=== PATIENT | female | born 1970 | race Hispanic/Latino ===

== ENCOUNTER 2017-02-28 15:31 | Emergency (ER) | payer SELFPAY ==
--- NOTE | 2017-02-28 17:19 | RAD ---
LEFT ANKLE THREE VIEWS: 02/28/17 HISTORY: Left ankle pain. FINDINGS/IMPRESSION: The ankle mortise is maintained. No fracture or dislocation or bony destruction is seen. Plantar calc aneal spur is present. POS: [facility]
[2017-02-28] MEDS ORDERED: Ketorolac Tromethamine 30 MG/ML VIAL ONE (17:40)
== END 2017-02-28 17:46 | disposition home or self-care (01) ==
LOC: ERS 15:31
DX: S93.402A Sprain of unspecified ligament of left ankle, initial encounter (principal); E11.9 Type 2 diabetes mellitus without complications; F32.9 Major depressive disorder, single episode, unspecified; J44.9 Chronic obstructive pulmonary disease, unspecified; I11.0 Hypertensive heart disease with heart failure; I50.9 Heart failure, unspecified; G40.909 Epilepsy, unspecified, not intractable, without status epilepticus; N19 Unspecified kidney failure; X50.0XXA Overexertion from strenuous movement or load, initial encounter
CPT/HCPCS: 96372; J1885

== ENCOUNTER 2017-09-29 13:31 | Inpatient (IN) | payer SELFPAY ==
--- NOTE | 2017-09-29 14:09 | RAD ---
CHEST 1 VIEW: Date: 09/29/17 HISTORY: Chest pain. COMPARISON: 04/23/15. FINDINGS: Cardiac silhouette is magnified and upper limits of normal in size. Pulmonary vasculature is slightly engorged with mild bilateral perihilar infiltrates and widespread reticulonodular interstitial promi nence. No lobar consolidation or evidence of pneumothorax. quality assurance monitor body leads overlie the chest. IMPRESSION: Borderline cardiomegaly. Borderline pulmonary vascular congestion. POS: H
[2017-09-29 14:17] LABS: #Basophils 0.1 thou/uL (0.0-0.2); #Eosinphils 0.2 thou/uL (0.0-0.7); #Lymphocytes 5.2 thou/uL (1.20-3.40); #Monocytes 1.2 thou/uL (0.11-0.59); #Neutrophils 10.6 thou/uL (1.40-6.50); %Basophils 0.7 % (0.0-1.0); %Lymphocytes 29.9 % (21.0-51.0); %Neutrophils 61.3 % (42.0-75.0); Hemoglobin 14.2 g/dL (12.0-16.0); Mean Corpuscular HGB CONC 33.8 g/dL (32.0-36.0); Mean Corpuscular Hemoglobin 31.6 pg (27.0-31.0); Mean Corpuscular Volume 93.6 fL (78.0-98.0); Mean Platelet Volume 7.2 fL (7.4-10.4); Platelet Count 213 thou/uL (130-400); RBC Distribution Width 12.6 % (11.5-14.5); White Blood Cell (WBC) Count 17.3 thou/uL (4.8-10.8)
[2017-09-29 14:40] LABS: ALT (SGPT) 14 U/L (8-55); AST (SGOT) 24 U/L (5-34); Albumin 3.6 g/dL (3.5-5.0); Alkaline Phosphatase 81 U/L (40-150); Anion Gap 13 mmol/L (10-20); BUN (Urea Nitrogen) 8 mg/dL (7.0-18.7); Bilirubin, Total 1.3 mg/dL (0.2-1.2); Calc. Creatinine Clearance 0 mL/min (70-130); Calcium 8.5 mg/dL (7.8-10.44); Carbon Dioxide 28 mmol/L (22-29); Chloride 99 mmol/L (98-107); Estimated GFR-MDRD 75; Globulin 4.3 g/dL (2.4-3.5); Glucose 136 mg/dL (70-105); Potassium 3.5 mmol/L (3.5-5.1); Protein, Total 7.9 g/dL (6.0-8.3); Sodium 136 mmol/L (136-145)
[2017-09-29] MEDS ORDERED: Carvedilol 6.25 MG TAB PO SCH (15:30)
[2017-09-29] MEDS ORDERED: Vancomycin HCl 1.5 GM in Sodium Chloride 0.9% 250 ML 300 ML IVPB SCH (15:30)
[2017-09-29] MEDS ORDERED: Lisinopril 10 MG TAB PO SCH (15:30)
[2017-09-29] MEDS ORDERED: Isosorbide Mononitrate 20 MG TAB PO SCH (15:45)
[2017-09-29] MEDS ORDERED: Lisinopril 10 MG TAB ONE (16:29)
--- NOTE | 2017-09-29 17:31 | ULT ---
LEFT LOWER EXTREMITY VENOUS DOPPLER ULTRASOUND: 09/29/17 COMPARISON: None. HISTORY: Left lower extremity edema and pain, swelling, assess for DVT. TECHNIQUE: Multiplanar lantigua scale sonographic imaging of the venous structures of the left lower extremity obtai destin with color flow and spectral analysis. FINDINGS: The left common femoral vein, greater saphenous vein, profunda femoral vein, femoral vein, popliteal vein and posterior tibial vein appear patent. Normal blood flow, augmentation, and compression noted within the deep venous system of the left lower extremity with no evidence for DVT. IMPRESSION: No evidence for deep venous thrombosis of the left lower extremity. POS: FERNANDA
[2017-09-29] MEDS ORDERED: Acetaminophen 500 MG TAB ONE ×2 (17:47→17:50)
[2017-09-29 18:36] LABS: Lactic Acid 1.5 mmol/L (0.5-2.2)
[2017-09-29] MEDS ORDERED: hydrALAZINE 20 MG/ML VIAL SLOW IVP PRN (18:57)
[2017-09-29] MEDS ORDERED: Dextrose 5% in Water 1,000 ML IV PRN (18:57)
[2017-09-29] MEDS ORDERED: Ondansetron ODT 4 MG TAB PO PRN (18:57)
[2017-09-29] MEDS ORDERED: cloNIDine 0.1 MG TAB PO PRN (18:57)
[2017-09-29] MEDS ORDERED: Milk Of Magnesia 30 ML UDCUP PO PRN (18:57)
[2017-09-29] MEDS ORDERED: HumaLOG 300 UNITS/3 ML VIAL SC PRN (18:57)
[2017-09-29] MEDS ORDERED: Dextrose 50% Abboject 50 ML SYRINGE SLOW IVP PRN (18:57)
[2017-09-29] MEDS ORDERED: Temazepam 15 MG CAP PO PRN (18:57)
[2017-09-29] MEDS ORDERED: Acetaminophen 325 MG TAB PO PRN (18:57)
--- NOTE | 2017-09-29 20:45 | HP ---
PRIMARY CARE PHYSICIAN: Through the [facility]. CHIEF COMPLAINT: Pain and swelling in the left leg. HISTORY OF PRESENT ILLNESS: Ms. Buckley is a pleasant 47-year-old female that has a history of hypert ension, diabetes mellitus, and morbid obesity. She was in her usual state of health until the end of July. She says that she was working in her home and she stepped on some plastic bottles and fell. She says it immediately turned green and purple. She says that it was burning off and on, and the br uising went away, but then she started to become very itchy. She says that she started scratching it off and on. Then, by Monday, she started noticing some pain in the area, it was turning red and sw ollen. She developed some fevers and chills and as a result, she came to the ER for evaluation. In the ER, she was found to have an area consistent with cellulitis. Her white cell count was elevated at 17.3 and she is being admitted for further evaluation. The patient denies any other complaints at this time. REVIEW OF SYSTEMS: All systems were reviewed and are negative except for that mentioned in history o f present illness. PAST MEDICAL HISTORY: Significant for obstructive sleep apnea; COPD, on home oxygen; asthma; obesity ; diabetes mellitus type 2; hypertension; hyperlipidemia; and hypercholesterolemia. PAST SURGICAL HISTORY: She has had a cholecystectomy and bilateral tubal ligation. ALLERGIES: CODEINE. SOCIAL HISTORY: She is , has 2 children. She is a nonsmoker, nondrinker. FAMILY HISTORY: Significant for heart disease and cancer. Her brother and sister have diabetes ronnie itus. MEDICATIONS: Include simvastatin 20 mg daily, isosorbide mononitrate 30 mg a day, carvedilol 6.25 mg twice daily, aspirin 81 mg a day, amitriptyline 25 mg 2 tablets a day, Zantac 150 mg twice daily, li sinopril 10 mg daily, metformin 1000 mg twice a day and Lasix 40 mg twice daily. PHYSICAL EXAMINATION: GENERAL: She is alert and oriented. She appears to be in no acute distress. VITAL SIGNS: Blood pressure was 187/108, ranging to 150/80; heart rate 105; respiratory rate of 28; temperature is 100.5. HEENT: Pupils are equal, round, and reactive. Extraocular muscles are intact. Her sclerae are anic teric. Throat: No erythema, no exudates. NECK: No adenopathy, no bruits. LUNGS: Clear to auscultation. There is no wheezing, no rales. CARDIOVASCULAR: She has a normal S1 and S2, no S3 or S4. No murmurs or clicks, no rubs. ABDOMEN: Obese, it is soft, nontender, nondistended. Positive for bowel sounds. No rebound or guar ding. EXTREMITIES: She has got lower extremity edema on the left lower extremity. There is an area encomp assing most of the medial aspect of the left lower extremity with redness and erythema. It is warm t o the touch. She has palpable dorsalis pedis pulses bilaterally. No other significant lesions aroun d the feet. NEUROLOGIC: The exam is grossly nonfocal. She has intact muscle strength in both her upper and lowe r extremities. LABORATORY DATA: White blood cell count 17.3, hemoglobin 14.2, hematocrit is 42.1, platelet count is 213. Sodium 136, potassium 3.5, chloride is 99, CO2 is 28, BUN of 8, creatinine 0.81, glucose is 13 2. Lactic acid was 2.4. ASSESSMENT AND PLAN: 1. This is a pleasant 47-year-old female who presents to the emergency room with what appears to be a cellulitis of the left lower extremity. She has leukocytosis and low-grade temperature. Due to he r diabetes and her morbid obesity, I agree with admission to the hospital for the initial treatment u ntil the area was stabilized. She will be therefore admitted to medicine, started on broad-spectrum IV antibiotics. We will begin with Levaquin and vancomycin. The area has been marked and we will fo llow this clinically. Hopefully, she can be transitioned to an oral antibiotic after approximately 2 -3 days in the hospital. 2. Diabetes mellitus. Continue metformin as well as sliding scale insulin. 3. Morbid obesity. Consult nutrition as she has life threatening obesity. When she lies down, she desaturates. Therefore, we will put her on supplemental oxygen. 4. Obesity hypoventilation syndrome. The patient realizes this condition, but says she was unable t o afford the BiPAP machine. It sounds like she has not ever had a sleep study, but she definitely lazo s this clinically. 5. She will be placed on DVT prophylaxis and lower extremity venous Doppler has been ordered and per formed and is pending.
[2017-09-29] MEDS: Carvedilol 6.25 MG TAB PO SCH (21:09)
[2017-09-29] MEDS: Amitriptyline HCl 25 MG TAB PO SCH (21:09)
[2017-09-29] MEDS: Simvastatin 20 MG TAB PO SCH (21:09)
[2017-09-29] MEDS: Famotidine 20 MG TAB PO SCH (21:09)
[2017-09-29] MEDS: Docusate 100 MG CAP PO SCH (21:10)
[2017-09-30] MEDS: Vancomycin HCl 1.25 GM in Sodium Chloride 0.9% 250 ML 250 ML IVPB SCH ×2 (01:10→08:51)
[2017-09-30] MEDS: traMADol HCl 50 MG TAB PO PRN ×2 (05:46→10:17)
[2017-09-30 06:00] LABS: Anion Gap 11 mmol/L (10-20); BUN (Urea Nitrogen) 15 mg/dL (7.0-18.7); Calc. Creatinine Clearance 116 mL/min (70-130); Calcium 7.7 mg/dL (7.8-10.44); Carbon Dioxide 25 mmol/L (22-29); Chloride 102 mmol/L (98-107); Estimated GFR-MDRD 29; Glucose 130 mg/dL (70-105); Potassium 3.7 mmol/L (3.5-5.1); Sodium 134 mmol/L (136-145)
[2017-09-30 06:10] LABS: Band 16 % (5-11); Eosinophils 3 % (0-10); Hemoglobin 11.7 g/dL (12.0-16.0); Lymphocytes 15 % (21-51); MDiff Complete? YES; Mean Corpuscular HGB CONC 33.3 g/dL (32.0-36.0); Mean Corpuscular Hemoglobin 31.1 pg (27.0-31.0); Mean Corpuscular Volume 93.6 fL (78.0-98.0); Mean Platelet Volume 7.3 fL (7.4-10.4); Monocytes 10 % (0-10); Neutrophil 55 % (42-75); PLT Morphology Comment Appears Adequate; Platelet Count 202 thou/uL (130-400); RBC Distribution Width 12.6 % (11.5-14.5); RBC Morphology Normal; Reactive Lymphocytes 1 % (0-10); Red Blood Cell (RBC) Count 3.74 mill/uL (4.20-5.40); White Blood Cell (WBC) Count 15.6 thou/uL (4.8-10.8)
[2017-09-30] MEDS ORDERED: metFORMIN 500 MG TAB PO SCH (08:00)
[2017-09-30] MEDS: Carvedilol 6.25 MG TAB PO SCH ×2 (08:43→21:24)
[2017-09-30] MEDS: Docusate 100 MG CAP PO SCH ×2 (08:43→21:24)
[2017-09-30] MEDS: Aspirin 81 mg Enteric Coated Tablet PO SCH (08:43)
[2017-09-30] MEDS: Amitriptyline HCl 25 MG TAB PO SCH ×2 (08:43→21:24)
[2017-09-30] MEDS: Enoxaparin Sodium 40 MG/0.4 ML SYRINGE SC SCH (08:45)
[2017-09-30] MEDS: Famotidine 20 MG TAB PO SCH ×2 (08:45→21:23)
[2017-09-30] MEDS ORDERED: Lisinopril 10 MG TAB PO SCH (09:00)
[2017-09-30] MEDS ORDERED: Furosemide 40 MG TAB PO SCH (09:00)
[2017-09-30] MEDS ORDERED: Sodium Chloride 0.9% 1,000 ML IV SCH (11:00)
--- NOTE | 2017-09-30 11:08 | PDOC.PN ---
- Subjective Encounter Start Date: 09/30/17 Encounter Start Time: 11:06 Ms. Sepulveda was seen today in follow-up. She says she feels her chest is heavy, and a bit short of breath. He looks uncomfortable. She reports no significant change in her leg, and notes some burning on the right side of her back. - Objective Resuscitation Status: Resuscitation Status FULL:Full Resuscitation MAR Reviewed: Yes Vital Signs & Weight: Vital Signs (12 hours) Temp Pulse Resp BP Pulse Ox 09/30/17 07:54 99.0 F 82 20 116/57 L 90 L 09/30/17 03:54 100.7 F H 80 24 H 123/58 L 95 09/29/17 23:46 99.6 F 80 28 H 127/56 L 93 L Weight Weight 439 lb 3 oz I&O: 09/29/17 09/30/17 10/01/17 06:59 06:59 06:59 Intake Total 240 Balance 240 Result Diagrams: 09/30/17 05:14 09/30/17 05:14 Additional Labs: Accuchecks 09/30/17 09/29/17 05:45 20:25 POC Glucose 120 H 135 H Phys Exam - Physical Examination HEENT: PERRLA Respiratory: no wheezing, no rales, clear to auscultation bilateral + rhonchi Cardiovascular: RRR, no significant murmur, no rub Gastrointestinal: soft, non-tender, positive bowel sounds Musculoskeletal: edema present + lower extremity edema, and erythema on the left lower extremity, slightly improved Dx/Plan (1) Cellulitis of leg, left Code(s): L03.116 - CELLULITIS OF LEFT LOWER LIMB Status: Acute (2) Sepsis Code(s): A41.9 - SEPSIS, UNSPECIFIED ORGANISM Status: Acute (3) Acute renal failure Status: Acute (4) COPD (chronic obstructive pulmonary disease) Status: Acute (5) Diabetes type 2, controlled Code(s): E11.9 - TYPE 2 DIABETES MELLITUS WITHOUT COMPLICATIONS Status: Chronic (6) Morbid obesity Code(s): E66.01 - MORBID (SEVERE) OBESITY DUE TO EXCESS CALORIES Status: Chronic (7) Obesity hypoventilation syndrome Code(s): E66.2 - MORBID (SEVERE) OBESITY WITH ALVEOLAR HYPOVENTILATION Status : Chronic - Plan * Cellulitis with sepsis- continue Levaquin and Vancomycin * Acute renal failure- her renal function has worsened overnight- will need to discontinue Metformin, Lisinopril, and Lasix, cautious hydration and re-evaluate * Obesity Hypoventillation- she has very little reserve with regards to her respiratory status- now that she will need some hydration- I am concerned that she will decompensate with regards to her respiratory status- therefore will move her to the IMCU, as she may need BiPAP, and closer monitoring * HTN- blood pressure is stable * DM- blood glucose is stable * Obesity- she has life-threatening obesity- Nutrition consult has been placed..
[2017-09-30] MEDS: HumaLOG 300 UNITS/3 ML VIAL SC PRN (12:40)
--- NOTE | 2017-09-30 16:28 | CON ---
DATE OF CONSULTATION: 09/30/2017 REASON FOR CONSULTATION: Shortness of breath. CONSULTING PHYSICIAN: Dr. Vergara. HISTORY OF PRESENT ILLNESS: The patient is a pleasant 47-year-old female who is currently admitted for treatment of a left leg cellulitis. She has been given copious IV fluids. She started to have some trouble breathing. She probably has underlying PETER, but has never had a sleep study. Dr. Duarte has seen her in the past and she does have COPD and asthma and has intermittently been on home oxygen. PAST MEDICAL HISTORY: 1. Morbid obesity. 2. PETER. 3. COPD. 4. Asthma. 5. Hypertension. 6. Hyperlipidemia. 7. Hypercholesterolemia. PAST SURGICAL HISTORY: Cholecystectomy and bilateral tubal ligation. ALLERGIES: CODEINE. SOCIAL HISTORY: Quit smoking at age 24. Does not consume alcohol. FAMILY MEDICAL HISTORY: Mother, heart disease, cancer, diabetes mellitus. MEDICATIONS PRIOR TO ADMISSION: Simvastatin, isosorbide mononitrate, carvedilol , aspirin, amitriptyline, Zantac, lisinopril, metformin, and Lasix. REVIEW OF SYSTEMS: Remarkable for left leg swelling and tightness in her chest. Otherwise, 12-point review is negative. PHYSICAL EXAMINATION: VITAL SIGNS: Temperature 98.8, pulse 70, respirations 20, O2 sat 92% on 2 liters, blood pressure 96/50. GENERAL: She is awake, alert, and in no distress. HEENT: Remarkable for a class 4 Mallampati airway. NECK: No JVD. Increased girth present. LUNGS: Clear, but diminished breath sounds. CARDIOVASCULAR: S1, S2 regular. ABDOMEN: Soft, morbidly obese. EXTREMITIES: She has erythema of her left anterior tibial region extending down towards her ankle. LABORATORY DATA: White blood cell count 15.6, hematocrit 35, platelet count 202 with 55% neutrophils, 16% bands. Sodium 134, potassium 3.7, chloride 102, CO2 25, BUN 15, creatinine 1.8, glucose 130. ASSESSMENT: 1. Left lower extremity cellulitis. 2. Underlying obesity, chronic obstructive pulmonary disease, and obstructive sleep apnea. PLAN: Agree with current plans in place including intermittent BiPAP as needed. Continue antibiotics and add nebulization treatments. I would be happy to follow with you while she is in the IMCU. Following consultation encompassed 70 minutes time; of that, greater than 50% was spent with the patient and/or in the patient's unit in the hospital. TIP
[2017-09-30 16:40] LABS: Vancomycin, Trough 36.3 ug/mL
[2017-09-30] MEDS: Simvastatin 20 MG TAB PO SCH (21:23)
[2017-09-30] MEDS: Nystatin Powder 15 GM BOT TOP SCH (21:24)
[2017-10-01] MEDS ORDERED: Vancomycin HCl 1.25 GM in Sodium Chloride 0.9% 250 ML 250 ML IVPB SCH (05:00)
[2017-10-01 05:25] LABS: Band 34 % (5-11); Eosinophils 3 % (0-10); Hemoglobin 11.8 g/dL (12.0-16.0); Lymphocytes 24 % (21-51); MDiff Complete? YES; Mean Corpuscular HGB CONC 33.2 g/dL (32.0-36.0); Mean Corpuscular Hemoglobin 31.2 pg (27.0-31.0); Mean Corpuscular Volume 94.1 fL (78.0-98.0); Mean Platelet Volume 7.5 fL (7.4-10.4); Monocytes 3 % (0-10); Neutrophil 35 % (42-75); PLT Morphology Comment Appears Adequate; Platelet Count 219 thou/uL (130-400); RBC Distribution Width 12.8 % (11.5-14.5); RBC Morphology Normal; Reactive Lymphocytes 1 % (0-10); Red Blood Cell (RBC) Count 3.78 mill/uL (4.20-5.40); White Blood Cell (WBC) Count 15.3 thou/uL (4.8-10.8)
[2017-10-01 05:26] LABS: Anion Gap 15 mmol/L (10-20); BUN (Urea Nitrogen) 25 mg/dL (7.0-18.7); Calc. Creatinine Clearance 57 mL/min (70-130); Calcium 7.9 mg/dL (7.8-10.44); Carbon Dioxide 22 mmol/L (22-29); Chloride 99 mmol/L (98-107); Estimated GFR-MDRD 12; Glucose 112 mg/dL (70-105); Potassium 3.8 mmol/L (3.5-5.1); Sodium 132 mmol/L (136-145)
[2017-10-01 05:27] LABS: Vancomycin, Random 31.7 ug/mL (See Comment)
[2017-10-01] MEDS: Famotidine 20 MG TAB PO SCH ×2 (08:49→21:03)
[2017-10-01] MEDS: Amitriptyline HCl 25 MG TAB PO SCH ×2 (08:50→21:03)
[2017-10-01] MEDS: Carvedilol 6.25 MG TAB PO SCH ×2 (08:50→21:02)
[2017-10-01] MEDS: Aspirin 81 mg Enteric Coated Tablet PO SCH (08:50)
[2017-10-01] MEDS: Docusate 100 MG CAP PO SCH ×2 (08:52→21:02)
[2017-10-01] MEDS: Enoxaparin Sodium 40 MG/0.4 ML SYRINGE SC SCH (08:52)
[2017-10-01] MEDS: Nystatin Powder 15 GM BOT TOP SCH ×2 (08:53→21:03)
--- NOTE | 2017-10-01 11:36 | PRG ---
DATE OF SERVICE: 10/01/2017 SUBJECTIVE: The patient says she feels okay. She is disappointed that she has not had any significa nt urine output. PHYSICAL EXAMINATION: VITAL SIGNS: Temperature is 99.2, pulse 68, blood pressure 112/57, O2 sat 96% on 2 liters. HEENT: Unremarkable. NECK: No JVD. LUNGS: Clear. CARDIAC: S1 and S2 regular. ABDOMEN: Soft. EXTREMITIES: Trace edema. LABORATORY DATA: White blood cell count 15.3, hematocrit 35.6, platelet count 219,000. Sodium 132, potassium 3.8, chloride 99, CO2 22, BUN 25, creatinine 3.8, glucose 112. ASSESSMENT: 1. Left lower extremity cellulitis. 2. Acute renal failure. 3. Underlying obesity. 4. Chronic obstructive pulmonary disease. 5. Obstructive sleep apnea. RECOMMENDATION: I would recommend a Nephrology consult. Might need to stop the vancomycin and use a lternative medication for treatment of cellulitis. I would use BiPAP if needed for respiratory insuf ficiency, although at the current time, it does not appear that she needs that.
[2017-10-01] MEDS: Sodium Chloride 0.9% 1,000 ML IV SCH ×2 (12:22→23:21)
--- NOTE | 2017-10-01 16:07 | PDOC.PN ---
- Subjective Encounter Start Date: 10/01/17 Encounter Start Time: 18:40 Subjective: no complains, left lower leg pain has decreased - Objective Resuscitation Status: Resuscitation Status FULL:Full Resuscitation MAR Reviewed: Yes Vital Signs & Weight: Vital Signs (12 hours) Temp Pulse Resp BP BP Pulse Ox 10/01/17 13:32 87 18 96 10/01/17 12:00 97.9 F 73 19 96/42 L 96 10/01/17 09:30 68 20 96 10/01/17 08:50 112/57 L 10/01/17 08:00 99.2 F 80 18 97 10/01/17 07:40 99.2 F 80 18 98/46 L 96 10/01/17 05:57 69 14 94 L Weight Admit Weight 439 lb 3.04 oz Weight 449 lb I&O: 09/30/17 10/01/17 10/02/17 06:59 06:59 06:59 Intake Total 240 1353 Output Total 12 Balance 240 1353 -12 Result Diagrams: 10/01/17 04:16 10/01/17 04:16 Additional Labs: Accuchecks 10/01/17 10/01/17 09/30/17 12:45 06:26 21:29 POC Glucose 120 H 113 H 125 H 09/30/17 16:30 POC Glucose 100 Phys Exam - Physical Examination morbid obesity HEENT: PERRLA, moist MMs, sclera anicteric, TM's clear, oral pharynx no lesions , 2+ tonsils Neck: no nodes, no JVD, supple, full ROM Respiratory: no wheezing, no rales, no rhonchi, wheezing present, clear to auscultation bilateral Cardiovascular: RRR, no significant murmur, no rub, gallop, irregular Gastrointestinal: soft, non-tender, no distention, positive bowel sounds Musculoskeletal: edema present Neurological: non-focal, normal sensation, moves all 4 limbs Deviation from normal: extensive cellulites on the left lower extremity Dx/Plan (1) Acute renal failure Status: Acute (2) Cellulitis of leg, left Code(s): L03.116 - CELLULITIS OF LEFT LOWER LIMB Status: Acute (3) Acute on chronic respiratory failure with hypoxia and hypercapnia Code(s): J96.21 - ACUTE AND CHRONIC RESPIRATORY FAILURE WITH HYPOXIA; J96.22 - ACUTE AND CHRONIC RESPIRATORY FAILURE WITH HYPERCAPNIA Status: Acute (4) Morbid obesity Code(s): E66.01 - MORBID (SEVERE) OBESITY DUE TO EXCESS CALORIES Status: Chronic (5) Obesity hypoventilation syndrome Code(s): E66.2 - MORBID (SEVERE) OBESITY WITH ALVEOLAR HYPOVENTILATION Status : Chronic (6) Sleep apnea Code(s): G47.30 - SLEEP APNEA, UNSPECIFIED Status: Chronic - Plan * Cellulitis with sepsis- continue Levaquin and stop Vancomycin, trough 34 and repeat trough 31. Increasing creatinine from normal to 3+ * Acute renal failure- her renal function has worsened overnight- will need to discontinue Metformin, Lisinopril, and Lasix, cautious hydration and re- evaluate. STOP VANCOMycin. Last 24 hours patient has barely made any urine, straight cath removed only 10 CC of urine. Will consult renal * Obesity Hypoventillation- she has very little reserve with regards to her respiratory status- now that she will need some hydration- I am concerned that she will decompensate with regards to her respiratory status- she may need BiPAP , and closer monitoring * HTN- blood pressure is stable * DM- blood glucose is stable * Obesity- she has life-threatening obesity- Nutrition consult has been placed.. * .
--- NOTE | 2017-10-01 17:50 | ULT ---
BILATERAL RENAL ULTRASOUND: History: Diffuse edema. FINDINGS: The right kidney measures 11.3 cm and the left kidney is 10.8 cm. There is 3.2 cm cyst in the left ki dney. The urinary bladder is not visualized. IMPRESSION: 1. No evidence of obstruction. 2. Left renal cyst. POS: [facility]
[2017-10-01] MEDS: Simvastatin 20 MG TAB PO SCH (21:03)
--- NOTE | 2017-10-01 21:05 | CON ---
DATE OF CONSULTATION: 10/01/2017 CONSULTING PHYSICIAN: Dr. Marquez. REASON FOR CONSULTATION: Acute kidney injury. REASON FOR ADMISSION: Swelling in the left leg. HISTORY OF PRESENT ILLNESS: A 47-year-old morbidly obese female with history of type 2 diabetes, obs tructive sleep apnea, COPD, asthma, came to the hospital with left leg pain and swelling. Patient wa s having left leg lesion for almost two months after she had a fall and has been getting red and was very itchy. She is complaining of a lot of pain, especially when she puts weight on the leg. No fev er or chills. No nausea, vomiting, no chest pain. Nephrology is currently consulted for acute kidne y injury. Her creatinine on admission was 0.8 three days back and this morning is 3.8 and she is not making any urine and in-and-out catheter demonstrated no urine. Nephrology is consulted. PAST MEDICAL HISTORY: Possible obstructive sleep apnea, chronic obstructive pulmonary disease, asthm a, obesity, type 2 diabetes, hypertension, hyperlipidemia. PAST SURGICAL HISTORY: Cholecystectomy, bilateral tubal ligation. HOME MEDICATIONS: Simvastatin, isosorbide mononitrate, carvedilol, aspirin, amitriptyline, Zantac, l isinopril, metformin, Lasix. ALLERGIES: CODEINE. SOCIAL HISTORY: No smoking, alcohol, or illicit drugs. FAMILY HISTORY: No history of any kidney disease. REVIEW OF SYSTEMS: The following complete review of systems was negative, unless otherwise mentioned in the HPI or below: Constitutional: Weight loss or gain, ability to conduct usual activities. Sk in: Rash, itching. Eyes: Double vision, pain. ENT/Mouth: Nose bleeding, neck stiffness, pain, te nderness. Cardiovascular: Palpitations, dyspnea on exertion, orthopnea. Respiratory: Shortness of breath, wheezing, cough, hemoptysis, fever or night sweats. Gastrointestinal: Poor appetite, abdom inal pain, heartburn, nausea, vomiting, constipation, or diarrhea. Genitourinary: Urgency, frequenc y, dysuria, nocturia. Musculoskeletal: Pain, swelling. Neurologic/Psychiatric: Anxiety, depressio n. Allergy/Immunologic: Skin rash, bleeding tendency. PHYSICAL EXAMINATION: GENERAL: This is a morbidly obese female in no apparent distress. VITAL SIGNS: Temperature 98.7, pulse 73, respirations 18, blood pressure . HEENT: Atraumatic, normocephalic. Oral mucosa is moist. NECK: Supple, no masses. CARDIOVASCULAR: S1, S2 heard. RESPIRATORY: Clear. MUSCULOSKELETAL: 1+ edema. DERMATOLOGIC: No skin rash. NEUROLOGIC: Alert, awake. PSYCHIATRIC: Mood and affect normal. LABORATORY DATA: WBC is 15.3, hemoglobin is 11.8, platelets 290. Sodium 130, potassium 3.8, bicarbo jennifer 22, BUN is 25, creatinine is 3.8. Vancomycin level was 36.3 and 31.7 this morning. ASSESSMENT AND PLAN: 1. Acute kidney injury with oliguria. No acute indication for dialysis. We will continue to monito r. We will check a renal ultrasound and bladder scan with no urine. 2. Hyponatremia, concerns for fasciitis. I will also consult Surgery to rule out fasciitis. Cammie francis does have acute kidney injury and not able to have contrast at this point. I will discuss [facility] Dr. Lofton. 3. Elevated vancomycin level. Agree with holding vancomycin and monitor vancomycin level. 4. Anemia. 5. Leukocytosis. 6. History of type 2 diabetes. 7. Morbid obesity. 8. Hypotension. 9. Prognosis guarded. We will rule out for fasciitis . We will have Surgery consult. Continue IV fluids. Avoid nephrotoxins, continue supportive care. Monitor vancomycin level and dose based on e level and would recommend penicillin antibiotics too. We will follow. Thank you for the consult.
[2017-10-02 04:24] LABS: Band 35 % (5-11); Eosinophils 3 % (0-10); Lymphocytes 20 % (21-51); MDiff Complete? YES; Mean Corpuscular HGB CONC 33.9 g/dL (32.0-36.0); Mean Corpuscular Hemoglobin 31.7 pg (27.0-31.0); Mean Corpuscular Volume 93.6 fL (78.0-98.0); Monocytes 3 % (0-10); Neutrophil 39 % (42-75); PLT Morphology Comment Appears Adequate; Platelet Count 238 thou/uL (130-400); RBC Distribution Width 12.6 % (11.5-14.5); Red Blood Cell (RBC) Count 3.47 mill/uL (4.20-5.40); White Blood Cell (WBC) Count 14.4 thou/uL (4.8-10.8)
[2017-10-02 04:30] LABS: Anion Gap 14 mmol/L (10-20); BUN (Urea Nitrogen) 33 mg/dL (7.0-18.7); Calc. Creatinine Clearance 39 mL/min (70-130); Calcium 7.8 mg/dL (7.8-10.44); Carbon Dioxide 23 mmol/L (22-29); Chloride 99 mmol/L (98-107); Estimated GFR-MDRD 8; Glucose 111 mg/dL (70-105); Potassium 4.2 mmol/L (3.5-5.1); Sodium 132 mmol/L (136-145)
[2017-10-02] MEDS ORDERED: Vancomycin HCl 1.25 GM in Sodium Chloride 0.9% 250 ML 250 ML IVPB SCH (08:00)
[2017-10-02 08:36] LABS: Vancomycin, Random 22.6 ug/mL (See Comment)
[2017-10-02] MEDS ORDERED: Carvedilol 6.25 MG TAB PO SCH ×3 (09:50→21:00)
[2017-10-02] MEDS: Docusate 100 MG CAP PO SCH ×2 (10:00→21:37)
[2017-10-02] MEDS: traMADol HCl 50 MG TAB PO PRN ×2 (10:01→21:37)
[2017-10-02] MEDS: Amitriptyline HCl 25 MG TAB PO SCH ×2 (10:04→21:38)
[2017-10-02] MEDS: Aspirin 81 mg Enteric Coated Tablet PO SCH (10:04)
--- NOTE | 2017-10-02 10:10 | PDOC.PN ---
- Subjective Encounter Start Date: 10/02/17 (f/u cellulitis) Encounter Start Time: 10:06 Subjective: pt c/o leg burning - states worse than when she was admitted -: denies n/v/diarrhea/abd pain/difficulty breathing -: did void today - first time in a few days - Objective Resuscitation Status: Resuscitation Status FULL:Full Resuscitation Vital Signs & Weight: Vital Signs (12 hours) Temp Pulse Resp BP Pulse Ox 10/02/17 08:20 98.6 F 79 17 111/57 L 90 L 10/02/17 06:58 78 18 94 L 10/02/17 04:34 98.4 F 74 18 126/61 95 10/02/17 03:43 93 L 10/02/17 00:20 98.1 F 76 18 107/49 L 94 L 10/01/17 22:37 94 L Weight Admit Weight 439 lb 3.04 oz Weight 449 lb I&O: 10/01/17 10/02/17 10/03/17 06:59 06:59 06:59 Intake Total 1353 2184 Output Total 12 Balance 1353 2172 Result Diagrams: 10/02/17 03:39 10/02/17 03:39 Additional Labs: Accuchecks 10/02/17 10/01/17 10/01/17 06:06 21:45 16:52 POC Glucose 101 107 102 10/01/17 12:45 POC Glucose 120 H EKG Reviewed by me: Yes (tele - sinus 70-80's) Phys Exam - Physical Examination Constitutional: NAD Respiratory: no wheezing, no rales, no rhonchi Cardiovascular: RRR, no significant murmur Gastrointestinal: soft, non-tender, no distention, positive bowel sounds LLE erythema and edema within outlined area Neurological: non-focal, moves all 4 limbs Psychiatric: normal affect Deviation from normal: LLE as noted above Dx/Plan (1) Acute renal failure Status: Acute (2) Cellulitis of leg, left Code(s): L03.116 - CELLULITIS OF LEFT LOWER LIMB Status: Acute (3) COPD (chronic obstructive pulmonary disease) Status: Chronic Qualifiers: COPD type: unspecified COPD Qualified Code(s): J44.9 - Chronic obstructive pulmonary disease, unspecified (4) Diabetes type 2, controlled Code(s): E11.9 - TYPE 2 DIABETES MELLITUS WITHOUT COMPLICATIONS Status: Chronic Qualifiers: Diabetes mellitus complication status: with kidney complications Diabetes mellitus complication detail: with other kidney complication (5) Dyslipidemia Code(s): E78.5 - HYPERLIPIDEMIA, UNSPECIFIED Status: Chronic (6) Hypertension Code(s): I10 - ESSENTIAL (PRIMARY) HYPERTENSION Status: Chronic Qualifiers: Hypertension type: essential hypertension Qualified Code(s): I10 - Essential (primary) hypertension (7) Morbid obesity Code(s): E66.01 - MORBID (SEVERE) OBESITY DUE TO EXCESS CALORIES Status: Chronic (8) Obesity hypoventilation syndrome Code(s): E66.2 - MORBID (SEVERE) OBESITY WITH ALVEOLAR HYPOVENTILATION Status : Chronic - Plan * Appreciate Nephrology consult - by report from RN and patient,, she has been anuric for a few days. One void today, worsening creatinine, on IVF * d/c enoxaparin and change to heparin starting tomorrow for dvt prophy * change famotidine to once daily * change levaquin to cefepime with renal dosing * Cellulitis - surgery consult placed yesterday. Will order US of leg to eval for fluid collection. D/c vancomycin due to renal function and d/c levaquin for change to cefepime * dm controlled * bp on low side - discontinued for now home meds/ beta-zamzam and long-acting nitrate * * dvt prophy - change to heparin starting tomorrow * gi prophy - not indicated * code status full * * reviewed plan of care with patient, including the concern on her kidney function and that it is worse today than yesterday, no questions or further needs at end of eval. * * Care discussed with Dr. De * .
--- NOTE | 2017-10-02 12:38 | PRG ---
DATE OF SERVICE: 10/02/2017 SERVICE: Pulmonary Medicine INTERVAL HISTORY: The patient is doing okay from a breathing standpoint. She does not indicate havi ng any shortness of breath whatsoever. She is getting scheduled nebulized medication. She only uses them as needed at home. She is requesting that we change to as needed, because they are waking her up at night to give her a treatment. She denies any chest discomfort. She has not used her BiPAP in over 24 hours. That being said, the creatinine continues to up trend. She did have a urine movemen t last night. Otherwise, she denied any fevers or chills. She is not having any purulent sputum pro duction, nausea, vomiting, diarrhea, or hot, red, swollen joints. Her left leg continues to be quite tender. Seems to have more of a defined fluid collection today, although I did not see it yesterday . PHYSICAL EXAMINATION: VITAL SIGNS: Afebrile, pulse 81, blood pressure 120/67, respirations 21, saturation 96% on 2 liters nasal cannula. GENERAL: The patient is awake, alert, in no apparent distress. LUNGS: Excellent air entry. There is no prolonged expiratory phase present. Dependent crackles are identified. No rhonchi or wheezing is appreciated. HEART: Normal rate, regular. ABDOMEN: Soft, nontender, nondistended. Bowel sounds are positive. MUSCULOSKELETAL: No cyanosis or clubbing. There is no pitting in the right lower extremity. Left l ower extremity, has a nonpitting edema. There is a little bit of erythema/purple coloration. It is exquisitely tender to palpation and has a little bit of heat to it. LABORATORY DATA: WBC 14.4 and stable, hemoglobin 11.0, platelets 238,000. Creatinine 5.[address] up [address] ending. BUN 33. Basic metabolic profile is otherwise unremarkable. Vancomycin level is finally yulisa nding into the normal range of 22.6. Blood cultures x2 are unremarkable to date. ASSESSMENT: 1. Severe sepsis. 2. Cellulitis of the left lower extremity. 3. Acute kidney injury. 4. Morbid obesity with underlying hypoventilation. 5. Obstructive sleep apnea, severe. DISCUSSION AND PLAN: We will continue our empiric antibiotics. Acute kidney injury was likely assoc iated with antibiotics. The antibiotic vancomycin has been discontinued. She has been taken off the Levaquin at this point. All of her medications have been appropriately adjusted. We will try to mi nimize any nephrotoxicity and support the kidneys moving forward. I agree with the urine eosinophil level. She will remain in the IMCU for 1 more day, but once we have more definitive control of her v olume status, she can be considered for transition to the floor.
--- NOTE | 2017-10-02 12:44 | ULT ---
SOFT TISSUE SONOGRAM LEFT LEG: HISTORY: Left leg pain and swelling. Cellulitis and edema. FINDINGS: Sonographic survey of the anterior aspect of the left lower leg was performed. Just below the patell a, medial to the midline of the lower leg, a lobular fluid collection measures up to 4 cm in depth x 2.4 cm in width x 1.9 cm in length. IMPRESSION: Irregular fluid collection at the upper margin of the area of inflammation of the left lower leg. Ap pearance of an abscess. POS: [facility]
--- NOTE | 2017-10-02 12:54 | PRG ---
DATE OF SERVICE: 10/02/2017 SUBJECTIVE: This is a 47-year-old female being seen for acute kidney injury. The patient denies any nausea, vomiting or chest pain. PHYSICAL EXAMINATION: GENERAL: Patient is awake, alert. VITAL SIGNS: Afebrile, pulse 81, breathing 16, blood pressure 128/67. GENERAL APPEARANCE AND MENTAL STATUS: Fair. HEAD/NECK: Normocephalic. Atraumatic. EYES: EOMI. No deformity. EARS: Clear. No ulcers. NOSE: Intact. No lesions. MOUTH: Clear. No discharge. THROAT: Clear. No exudate. LUNGS: Clear. No crackles. CARDIAC: S1, S2. No rub. ABDOMEN: Benign. BS+. GENITALIA/RECTUM: Gold absent. BACK/EXTREMITIES: Lower extremities have edema. NEUROLOGICAL: Alert and motor intact. SKIN: Rash- Bruise- LYMPHATICS: Edema- Ulcer- LABORATORY DATA: Show hemoglobin 11, creatinine 5.1. ASSESSMENT AND RECOMMENDATIONS: 1. Acute kidney injury with anuria. Would recommend aggressive hydration. 2. Hypertension, stable. 3. Anemia, stable. 4. Abdominal compartment syndrome due to morbid obesity. I would recommend checking intraabdominal pressure.
[2017-10-02] MEDS ORDERED: Lidocaine 1% w/Epinephrine 1:100K 20 ML VIAL ONE (15:23)
[2017-10-02] MEDS: Nystatin Powder 15 GM BOT TOP SCH ×2 (17:20→21:38)
[2017-10-02] MEDS: Sodium Chloride 0.9% 1,000 ML IV SCH ×2 (17:57→21:51)
[2017-10-02] MEDS ORDERED: Cefepime 2 GM in Sodium Chloride 0.9% 100 ML IVPB SCH (20:00)
[2017-10-02] MEDS: Simvastatin 20 MG TAB PO SCH (21:38)
[2017-10-02 23:15] LABS: Bilirubin Small (Negative); Blood, Urine Large (Negative); Clarity CLOUDY (Clear); Glucose, Urine (Dipstick) Negative (Negative); Leukocyte Trace (Negative); Nitrite Negative (Negative); Protein, Urine (Dipstick) 30 mg/dL (Neg-Trace); Specific Gravity, Urine 1.015 (1.002-1.036); Urobilinogen 0.2 mg/dL (0.2-1.0)
[2017-10-02 23:17] LABS: Bacteria/HPF None Seen HPF (None Seen); WBC/HPF 21-50 HPF (0-3)
[2017-10-02 23:18] LABS: Pathc Cast-AUWi Flag 5.37 (0-2.49)
[2017-10-02 23:27] LABS: Other Casts/LPF 0-3 COARSE GRAN LPF (0-3 Hyaline)
[2017-10-03] MEDS: traMADol HCl 50 MG TAB PO PRN ×2 (04:15→10:16)
[2017-10-03 05:48] LABS: Anion Gap 16 mmol/L (10-20); BUN (Urea Nitrogen) 39 mg/dL (7.0-18.7); Calc. Creatinine Clearance 46 mL/min (70-130); Calcium 7.9 mg/dL (7.8-10.44); Carbon Dioxide 20 mmol/L (22-29); Chloride 101 mmol/L (98-107); Estimated GFR-MDRD 10; Glucose 88 mg/dL (70-105); Potassium 3.9 mmol/L (3.5-5.1); Sodium 133 mmol/L (136-145)
[2017-10-03 06:27] LABS: Band 1 % (5-11); Hemoglobin 11.1 g/dL (12.0-16.0); Lymphocytes 26 % (21-51); MDiff Complete? YES; Mean Corpuscular HGB CONC 33.8 g/dL (32.0-36.0); Mean Corpuscular Hemoglobin 31.2 pg (27.0-31.0); Mean Corpuscular Volume 92.4 fL (78.0-98.0); Mean Platelet Volume 7.2 fL (7.4-10.4); Monocytes 6 % (0-10); Neutrophil 67 % (42-75); PLT Morphology Comment Appears Adequate; Platelet Count 286 thou/uL (130-400); RBC Distribution Width 12.8 % (11.5-14.5); RBC Morphology Normal; Red Blood Cell (RBC) Count 3.57 mill/uL (4.20-5.40); White Blood Cell (WBC) Count 14.7 thou/uL (4.8-10.8)
[2017-10-03] MEDS: Carvedilol 6.25 MG TAB PO SCH (07:41)
[2017-10-03] MEDS: Enoxaparin Sodium 40 MG/0.4 ML SYRINGE SC SCH (07:41)
[2017-10-03] MEDS: Famotidine 20 MG TAB PO SCH ×2 (07:42→09:24)
--- NOTE | 2017-10-03 08:39 | PDOC.PN ---
- Subjective Encounter Start Date: 10/03/17 (f/u DM) Encounter Start Time: 08:36 Subjective: Pt reports feeling better today - voided x 2 since yesterday. -: pain controlled - needs OR for I&D as not tolerated at bedside - Objective Resuscitation Status: Resuscitation Status FULL:Full Resuscitation Vital Signs & Weight: Vital Signs (12 hours) Temp Pulse Resp BP BP Pulse Ox 10/03/17 07:52 97.2 F L 79 20 122/63 93 L 10/03/17 07:41 116/46 L 10/03/17 05:13 97.0 F L 81 16 127/63 96 10/03/17 00:00 96.6 F L 86 18 97/42 L 93 L Weight Admit Weight 439 lb 3.04 oz Weight 449 lb I&O: 10/02/17 10/03/17 10/04/17 06:59 06:59 06:59 Intake Total 2184 1350 Output Total 12 Balance 2172 1350 Result Diagrams: 10/03/17 04:31 10/03/17 04:31 Additional Labs: Accuchecks 10/03/17 10/02/17 10/02/17 05:50 20:59 16:20 POC Glucose 87 92 89 10/02/17 10:52 POC Glucose 84 No urine eosinophils seen EKG Reviewed by me: Yes Phys Exam - Physical Examination Constitutional: NAD Respiratory: no wheezing, no rales, no rhonchi, clear to auscultation bilateral Cardiovascular: RRR, no significant murmur Gastrointestinal: soft edema of LLE with bandage in place - laterally soaked with blood some erythema regression distally from outlined area Neurological: non-focal Psychiatric: normal affect Skin: no rash Dx/Plan (1) Acute renal failure Status: Acute (2) Cellulitis of leg, left Code(s): L03.116 - CELLULITIS OF LEFT LOWER LIMB Status: Acute (3) COPD (chronic obstructive pulmonary disease) Status: Chronic Qualifiers: COPD type: unspecified COPD Qualified Code(s): J44.9 - Chronic obstructive pulmonary disease, unspecified (4) Diabetes type 2, controlled Code(s): E11.9 - TYPE 2 DIABETES MELLITUS WITHOUT COMPLICATIONS Status: Chronic Qualifiers: Diabetes mellitus complication status: with kidney complications Diabetes mellitus complication detail: with other kidney complication (5) Dyslipidemia Code(s): E78.5 - HYPERLIPIDEMIA, UNSPECIFIED Status: Chronic (6) Hypertension Code(s): I10 - ESSENTIAL (PRIMARY) HYPERTENSION Status: Chronic Qualifiers: Hypertension type: essential hypertension Qualified Code(s): I10 - Essential (primary) hypertension (7) Morbid obesity Code(s): E66.01 - MORBID (SEVERE) OBESITY DUE TO EXCESS CALORIES Status: Chronic (8) Obesity hypoventilation syndrome Code(s): E66.2 - MORBID (SEVERE) OBESITY WITH ALVEOLAR HYPOVENTILATION Status : Chronic - Plan * * Appreciate Nephrology consult - UOP has restarted, remains on IVF. Avoid hypotension. * * Cellulitis/abscess - surgery consult yesterday - by report needs I&D in OR. Abx changed to cefepime yesterday with renal dosing due to SHARON - and Vanc and/ or levaquin contributing to it * * dm controlled * bp now normal - continue to hold home meds including beta-zamzam which was d/ c yesterday. risk of hypotension and further kidney injury is higher than the risk of cardiac complication in the OR. Resume when bp's increase further. * * dvt prophy - heparin * gi prophy - not indicated * code status full * * reviewed plan of care with patient, anticipated length of stay of at least 4- 5 days for monitoring/adjustment of meds for renal function and treatment of infection. * * Care discussed with Dr. De.
--- NOTE | 2017-10-03 09:06 | PRG ---
DATE OF SERVICE: 10/03/2017 SUBJECTIVE: This is a 47-year-old female being seen for acute kidney injury. The patient has starte d to make urine. PHYSICAL EXAMINATION: GENERAL: Patient is resting. VITAL SIGNS: Afebrile, pulse 81, breathing 16, blood pressure 127/66. OBJECTIVE: See above. Awake, alert, in no acute distress. GENERAL APPEARANCE AND MENTAL STATUS: Fair. HEAD/NECK: Normocephalic. Atraumatic. EYES: EOMI. No deformity. EARS: Clear. No ulcers. NOSE: Intact. No lesions. MOUTH: Clear. No discharge. THROAT: Clear. No exudate. LUNGS: Clear. No crackles. CARDIAC: S1, S2. No rub. ABDOMEN: Benign. BS+. GENITALIA/RECTUM: Gold absent. BACK/EXTREMITIES: Edema 0+ Ulcer- NEUROLOGICAL: Alert and motor intact. SKIN: Rash- Bruise- LYMPHATICS: Edema- Ulcer- LABORATORY: Hemoglobin 9.1, creatinine 4.7. ASSESSMENT AND RECOMMENDATIONS: 1. Acute kidney injury, improved. 2. Hypertension, stable. 3. Anemia, stable. 4. Medication based on glomerular filtration rate are appropriate. No indication for dialysis at this time.
[2017-10-03] MEDS: Aspirin 81 mg Enteric Coated Tablet PO SCH (09:24)
[2017-10-03] MEDS: Docusate 100 MG CAP PO SCH ×2 (09:24→21:23)
[2017-10-03] MEDS: Amitriptyline HCl 25 MG TAB PO SCH ×2 (09:24→21:22)
[2017-10-03] MEDS: Nystatin Powder 15 GM BOT TOP SCH ×2 (09:25→21:23)
[2017-10-03] MEDS: Heparin 5,000 UNITS/ML VIAL SC SCH ×2 (09:25→21:22)
--- NOTE | 2017-10-03 12:35 | CON ---
DATE OF CONSULTATION: 10/03/2017 REASON FOR CONSULTATION: Left lower leg infection. HISTORY: Ms. Buckley is a 47-year-old woman with significant comorbidities of diabetes and super morb id obesity. She fell at her home at the end of July and had severe bruising and swelling to her left lower leg. Eventually, the bruising went away, but then her leg started to itch and she scratched i t. On Monday, she started having pain in the area and noticed that it was becoming swollen again an d turning red in color. She had some fevers and chills and feeling bad, so she came to the emergency room and was admitted with cellulitis. Her white count was elevated at 17.3 [address] an ultrasound [address] rd showed a large fluid collection with the appearance of an abscess. General Surgery was consulte d for this reason. The patient states that the pain in her leg has stayed the same or maybe even got ten worse since her admission to the hospital. PAST MEDICAL HISTORY: Obstructive sleep apnea; COPD, on home oxygen; super morbid obesity; asthma; d iabetes; hypertension; hyperlipidemia. PAST SURGICAL HISTORY: Laparoscopic cholecystectomy, , and bilateral tubal ligation. REVIEW OF SYSTEMS: Ten-system review of systems is negative except per HPI and chronic dyspnea on ex ertion and difficulty breathing when lying flat. FAMILY HISTORY: Heart disease, cancer, and diabetes. Multiple family members are also obese. OUTPATIENT MEDICATIONS: Include simvastatin, isosorbide mononitrate, carvedilol, aspirin, amitriptyl ine, Zantac, lisinopril, metformin, and Lasix. INPATIENT MEDICATIONS: Include amitriptyline, aspirin, cefepime, docusate, Pepcid, sliding scale ins ulin, subcu heparin, Zocor, Nystatin powder, and multiple PRNs. SOCIAL HISTORY: Patient is with 2 children, lives at home with her family, and does not smok e, drink, or use illicit drugs. ALLERGIES: She reports an allergy to CODEINE. PHYSICAL EXAMINATION: VITAL SIGNS: The patient has been afebrile for the last 3 days. Heart rate is in the 80s-90s, 93%-9 6% saturated on room air with respiratory rate of 16-20, blood pressure 127/63. GENERAL: Reveals a super morbidly obese woman with a BMI of 87.7 kilograms/m2, who is in no acute di stress. She does become visibly dyspneic and wheezes with ambulating to and from the bathroom or in repositioning herself on the bed. She is not flushed or toxic in appearance. She is not jaundiced o r icteric. HEENT: Unremarkable. NECK: Supple, without lymphadenopathy. Thyroid was not really palpable. HEART: Regular in its rate and rhythm without murmurs, rubs, or gallops. LUNGS: Clear to auscultation bilaterally. ABDOMEN: Soft, obese, and nontender. No palpable masses or hernias. Healed surgical incisions. EXTREMITIES: Warm and well perfused. She has normal pedal pulses. Her left leg has an area of eryt bren, which is marked with skin marker and has not extended beyond these borders. This extends over almost the entire front of her leg and extends laterally onto her calf, there is fluctuance and tende rness in this area and the hypoechoic fluid collection approaches the skin surface in at least 2 area s where the fluctuance was most noticeable. NEUROLOGIC: No focal deficits. PSYCHIATRIC: Alert, oriented, and appropriate. LABORATORY DATA: White count was elevated on admission at 17 and has come down somewhat to 14, hemat ocrit 32, platelets 238. Electrolytes are unremarkable. The BUN and creatinine are elevated. Vanco mycin trough was initially elevated at 36.3. Random vancomycin level since then has been 31.7 and 22 .6. Microbiology: Blood cultures have shown no growth at 48 hours. ASSESSMENT: Left lower extremity infection. Ultrasound shows a fluid collection consistent with an abscess. I think there is likely to be an infected hematoma based on the patient's history, but I do recommend draining this. This was attempted at the bedside last night, but the cavity extended all the way behind her leg and had a large amount of clot in it and could not be adequately evacuated. T here was a large amount of blood mixed with pus, which was initially evacuates ed and this was sent for Gram stain and culture, but then the drainage, became more clearly bloody. It could be that only a portion of the hematoma was infected or could be that by decompressing the he matoma, some of the bleeding which had stopped, has now started up again. A pressure dressing was pl aced and the wound was packed and the plan is to take her to the operating room for incision and drai nage under anesthesia, at which time the hematoma cavity would be able to be better examined for hemo stasis and completeness of evacuation. The nurse was instructed to call if significant bleeding was noted. The patient and her family were in agreement with the plan. All of their questions were answ ered. I anticipate that she will require quite a large incision to adequately drain this hematoma.
--- NOTE | 2017-10-03 13:48 | PRG ---
DATE OF SERVICE: 10/03/2017 SERVICE: Pulmonary Medicine. INTERVAL HISTORY: The patient is doing great from a respiratory standpoint. She denies any current chest pain, nausea, vomiting, fevers or chills. We did an I and D at bedside yesterday. I drained s ignificant amounts of pus, but much was left behind. As such, she is going to have to go get surgica lly debrided today. Otherwise, there has been no interval change to her condition. PHYSICAL EXAMINATION: VITAL SIGNS: Afebrile, pulse 82, blood pressure 128/67, respirations 20, saturation 95% on 2 liters nasal cannula. GENERAL: The patient is awake, alert, in no apparent distress. LUNGS: Excellent air entry with no prolonged expiratory phase, wheezing, rhonchi or crackles. HEART: Normal rate, regular. ABDOMEN: Soft, nontender, nondistended. Bowel sounds are positive. MUSCULOSKELETAL: No cyanosis or clubbing. There is diffuse pitting throughout. GENITOURINARY: No Gold. NEUROLOGIC: Grossly nonfocal. LABORATORY DATA: WBC 14.7, hemoglobin 11.1, platelets 286,000. Band count has returned to the tawanda l range. Creatinine 4.77, finally down trending. Basic metabolic profile is otherwise stable or unr emarkable. Blood cultures x2 remain unremarkable. ASSESSMENT: 1. Severe sepsis. 2. Cellulitis and abscess of the left lower extremity, status post incision and drainage. 3. Acute kidney injury, improving. 4. Morbid obesity with underlying hypoventilation. 5. Obstructive sleep apnea, severe. DISCUSSION AND PLAN: Now that her acute kidney injury is slowly improving, we can transition the maggie ient out of the IMCU to the surgical unit. Pulmonary Critical Care will continue to follow along for 1-2 days. She is going down for surgical debridement of this lesion. It appears that her inflammat ory profile is improving and overall, the patient does feel like things are moving in the right direc tion.
[2017-10-03] MEDS ORDERED: Ondansetron HCl/PF 4 MG/2 ML Vial ONE (14:57)
[2017-10-03] MEDS ORDERED: Succinylcholine Chloride 20 MG/ML 10 ml SYRINGE FS ONE (14:57)
[2017-10-03] MEDS ORDERED: ePHEDrine/0.9% NaCl/PF SYRINGE 50 mg/10 ml ONE (14:57)
[2017-10-03] MEDS ORDERED: PHENYLEPHRINE-NS 100 MCG/ML 10 ML SYRINGE ONE (14:57)
[2017-10-03] MEDS ORDERED: Lidocaine 1% PF 5 ML VIAL ONE (14:57)
[2017-10-03] MEDS ORDERED: PROPOFOL 200 MG/20 ML VIAL ONE (14:57)
[2017-10-03] MEDS ORDERED: Metoclopramide HCl 10 MG/2 ML VIAL ONE (14:57)
[2017-10-03] MEDS ORDERED: Fentanyl 100 MCG/2 ML VIAL ONE (15:08)
[2017-10-03] MEDS ORDERED: Dexmedetomidine 200 MCG/2 ML VIAL ONE (15:36)
[2017-10-03] MEDS ORDERED: Ketamine 50 MG/ML VIAL ONE (15:36)
[2017-10-03] MEDS ORDERED: Bupivacaine/Epinephrine 0.25% 30 ML VIAL ONE (16:06)
[2017-10-03] MEDS ORDERED: Albuterol Sulfate HFA (OR ONLY) ONE (16:06)
[2017-10-03] MEDS ORDERED: PROPOFOL 20 ML ONE ×2 (16:36→17:52)
[2017-10-03] MEDS ORDERED: Promethazine HCl 25 MG/ML VIAL SLOW IVP PRN (16:56)
[2017-10-03] MEDS ORDERED: Ondansetron HCl/PF 4 MG/2 ML Vial IVP PRN (16:56)
[2017-10-03] MEDS ORDERED: Promethazine HCl 25 MG/ML VIAL IM PRN (16:56)
[2017-10-03] MEDS ORDERED: Ventilator Sedation Protocol 1 EACH FS SCH (18:45)
[2017-10-03] MEDS ORDERED: fentaNYL Citrate/PF 2,000 MCG in Sodium Chloride 0.9% 60 ML IV SCH (18:47)
[2017-10-03] MEDS ORDERED: Propofol 1,000 MG/100 ML VIAL IV PRN (18:47)
[2017-10-03] MEDS ORDERED: Lorazepam 2 MG/ML VIAL SLOW IVP PRN (18:47)
[2017-10-03] MEDS ORDERED: Fentanyl BOLUS 250 ML IVPB PRN (18:47)
[2017-10-03] MEDS ORDERED: DISCONTINUE PREVIOUS NARCOTIC PAIN MEDICATIONS AND BENZODIAZEPINES FS SCH (18:47)
[2017-10-03] MEDS ORDERED: Propofol BOLUS 1,000 MG/100 ML VIAL IV PRN (18:47)
[2017-10-03] MEDS: Cefepime 0.5 GM, Admixture Fee 1 EACH in Sodium Chloride 0.9% 100 ML IVPB SCH (21:22)
[2017-10-03] MEDS: Sodium Chloride 0.9% 1,000 ML IV SCH (21:22)
[2017-10-03] MEDS: Simvastatin 20 MG TAB PO SCH (21:23)
[2017-10-04 04:17] LABS: Anion Gap 16 mmol/L (10-20); BUN (Urea Nitrogen) 41 mg/dL (7.0-18.7); Calc. Creatinine Clearance 57 mL/min (70-130); Calcium 7.9 mg/dL (7.8-10.44); Carbon Dioxide 18 mmol/L (22-29); Chloride 105 mmol/L (98-107); Estimated GFR-MDRD 12; Glucose 76 mg/dL (70-105); Potassium 4.5 mmol/L (3.5-5.1); Sodium 134 mmol/L (136-145)
[2017-10-04 04:30] LABS: Band 17 % (5-11); Hemoglobin 10.1 g/dL (12.0-16.0); Lymphocytes 31 % (21-51); MDiff Complete? YES; Mean Corpuscular Hemoglobin 31.9 pg (27.0-31.0); Mean Corpuscular Volume 93.8 fL (78.0-98.0); Mean Platelet Volume 6.7 fL (7.4-10.4); Metamyelocyte 1 % (0-0); Monocytes 6 % (0-10); Neutrophil 45 % (42-75); PLT Morphology Comment Appears Adequate; Platelet Count 277 thou/uL (130-400); RBC Distribution Width 12.8 % (11.5-14.5); Red Blood Cell (RBC) Count 3.17 mill/uL (4.20-5.40); White Blood Cell (WBC) Count 11.5 thou/uL (4.8-10.8)
[2017-10-04] MEDS: Amitriptyline HCl 25 MG TAB PO SCH ×2 (08:37→21:17)
[2017-10-04] MEDS: Famotidine 20 MG TAB PO SCH (08:37)
[2017-10-04] MEDS: Heparin 5,000 UNITS/ML VIAL SC SCH ×2 (08:37→21:18)
[2017-10-04] MEDS: Sodium Chloride 0.9% 1,000 ML IV SCH (08:37)
[2017-10-04] MEDS: Aspirin 81 mg Enteric Coated Tablet PO SCH (08:37)
[2017-10-04] MEDS: Docusate 100 MG CAP PO SCH ×3 (08:38→21:32)
[2017-10-04] MEDS: Nystatin Powder 15 GM BOT TOP SCH ×2 (08:39→21:18)
--- NOTE | 2017-10-04 10:49 | PRG ---
DATE OF SERVICE: 10/04/2017 SERVICE: Pulmonary Medicine. INTERVAL HISTORY: The patient is doing fine from a cardiovascular and respiratory standpoint. Denie s any current chest pain, nausea, vomiting, fevers or chills. Otherwise, there has been no interval change to her condition. She went down for debridement yesterday. The exchanges are a little bit un comfortable. That being said, she is feeling much improved today. She has not been out of bed yet t prabhjot. PHYSICAL EXAMINATION: VITAL SIGNS: Afebrile, pulse 96, blood pressure 137/48, respirations 18, saturation 95% on 2 liters nasal cannula. GENERAL: The patient is awake, alert, no apparent distress. LUNGS: Decent air entry. There is no prolonged expiratory phase or wheezing. HEART: Normal rate, regular. ABDOMEN: Soft, nontender, nondistended. Bowel sounds are positive. MUSCULOSKELETAL: No cyanosis or clubbing. There is no pitting in the bilateral lower extremities. Left leg is wrapped. GENITOURINARY: Gold catheter in place. NEUROLOGIC: Grossly nonfocal. LABORATORY DATA: WBC 11.5, hemoglobin 10.1, platelets 277,000. Band count is 17%. Creatinine 3.89 and beautifully down trending, BUN 41, bicarbonate 18. Basic metabolic profile is otherwise unremark able. Blood cultures x2 are negative. ASSESSMENT: 1. Severe sepsis. 2. Cellulitis and abscess of the left lower extremity, status post incision and drainage and subsequ ent debridement. 3. Acute kidney injury, resolving. 4. Morbid obesity with underlying hypoventilation. 5. Obstructive sleep apnea, severe. DISCUSSION AND PLAN: The patient can be transitioned to the floor. We are going to interrupt her IV fluids as her acute kidney injury is improving and she is tolerating p.o. beautifully. We can nereyda ate saturations if it goes as low as 84% as long as patient is comfortable with them. We will try to increase exercise as tolerated. We will involve physical therapy to help keep the patient in condit ion.
--- NOTE | 2017-10-04 10:56 | PRG ---
DATE OF SERVICE: 10/04/2017 SUBJECTIVE: This is a 47-year-old female being seen for acute kidney injury. The patient denies any nausea, vomiting or chest pain. PHYSICAL EXAMINATION: GENERAL: Patient is awake, alert. VITAL SIGNS: Afebrile, pulse 96, breathing 16, blood pressure 111/45. HEAD/NECK: Normocephalic. Atraumatic. EYES: EOMI. No deformity. EARS: Clear. No ulcers. NOSE: Intact. No lesions. MOUTH: Clear. No discharge. THROAT: Clear. No exudate. LUNGS: Clear. No crackles. CARDIAC: S1, S2. No rub. ABDOMEN: Benign. BS+. GENITALIA/RECTUM: Gold absent. BACK/EXTREMITIES: Edema 0+ Ulcer- NEUROLOGICAL: Alert and motor intact. SKIN: Rash- Bruise- LYMPHATICS: Edema- Ulcer- LABORATORY DATA: Show hemoglobin 10.1, creatinine 3.89. ASSESSMENT AND RECOMMENDATIONS: 1. Acute kidney injury with chronic kidney disease stage 5, nonoliguric, improving. Continue hydrat ion. 2. Hypertension, stable. 3. Anemia, stable. 4. Metabolic acidosis, stable. We will follow the patient's renal function closely.
[2017-10-04 13:56] VITALS: BMI 87.7
--- NOTE | 2017-10-04 16:36 | PDOC.GSPN ---
Surgery Progress Note: Subj - Subjective Narrative: Patient is feeling much better. The redness and pain in her leg has diminished. Wound care had just changed the dressing that they're going to call me for tomorrow's dressing change. Her hematocrit is down somewhat which is attributable to intraoperative blood loss. She has not had any further significant bleeding. On exam her erythema has faded and receded. Cultures are still pending. Assessment/plan: Doing well status post drainage of infected hematoma. Cellulitis has significantly improved. She has multiple varicose veins which probably led both to the hematoma and to her rather copious bleeding during the I&D. This was able to be controlled with hemostatic agents and she has not had any further significant bleeding. We will watch her hematocrit and continue dressing changes and antibiotics. Surgery Progress Note: Obj - Vital signs Vital signs: Vital Signs - Most Recent Temp Pulse Resp BP Pulse Ox 98.3 F 91 24 H 146/54 H 90 L 10/04/17 15:00 10/04/17 15:00 10/04/17 15:00 10/04/17 15:00 10/04/17 15:00 Surgery Progress Note: Results - Labs Result Diagrams: 10/04/17 03:44 10/04/17 03:44 Lab results: Laboratory Results - last 24 hr 10/04/17 10/04/17 05:56 10:09 POC Glucose 77 89
[2017-10-04] MEDS: Cefepime 0.5 GM, Admixture Fee 1 EACH in Sodium Chloride 0.9% 100 ML IVPB SCH (21:17)
[2017-10-04] MEDS: Simvastatin 20 MG TAB PO SCH (21:18)
--- NOTE | 2017-10-04 22:25 | PDOC.PN ---
- Subjective Encounter Start Date: 10/04/17 Encounter Start Time: 16:00 Subjective: nsg notes rev, luna ovn, pts and family at bedside -: pt states that her leg overall feels better post dressing change - Objective Resuscitation Status: Resuscitation Status FULL:Full Resuscitation Vital Signs & Weight: Vital Signs (12 hours) Temp Pulse Resp BP Pulse Ox 10/04/17 15:00 98.3 F 91 24 H 146/54 H 90 L 10/04/17 11:00 98.4 F 88 22 H 145/58 H 91 L Weight Admit Weight 439 lb 3.04 oz Weight 449 lb Most Recent Monitor Data Heart Rate from ECG 107 NIBP 109/46 NIBP BP-Mean 63 Respiration from ECG 25 SpO2 95 I&O: 10/03/17 10/04/17 10/05/17 06:59 06:59 06:59 Intake Total 1350 928 838 Output Total 650 Balance 1350 928 188 Result Diagrams: 10/05/17 04:02 10/06/17 09:28 Additional Labs: Accuchecks 10/04/17 10/04/17 10/04/17 21:24 16:32 10:09 POC Glucose 111 H 98 89 10/04/17 05:56 POC Glucose 77 Phys Exam - Physical Examination Constitutional: NAD lying in hospital bed HEENT: moist MMs Respiratory: no wheezing, no rales, no rhonchi Cardiovascular: RRR, no rub Gastrointestinal: positive bowel sounds Neurological: moves all 4 limbs Psychiatric: normal affect, A&O x 3 Dx/Plan - Plan (1) Acute renal failure Status: Acute apprec nephrology c/s re: IVF and renal maintence (2) Cellulitis of leg, left Code(s): L03.116 - CELLULITIS OF LEFT LOWER LIMB Status: Acute improv apprec surg c/s s/p I&D, pending cx, will nee dwould care (3) COPD (chronic obstructive pulmonary disease) Status: Chronic Qualifiers: COPD type: unspecified COPD Qualified Code(s): J44.9 - Chronic obstructive pulmonary disease, unspecified (4) Diabetes type 2, controlled Code(s): E11.9 - TYPE 2 DIABETES MELLITUS WITHOUT COMPLICATIONS Status: Chronic Qualifiers: Diabetes mellitus complication status: with kidney complications Diabetes mellitus complication detail: with other kidney complication improved ctrl at this point in time (5) Dyslipidemia Code(s): E78.5 - HYPERLIPIDEMIA, UNSPECIFIED Status: Chronic (6) Hypertension Code(s): I10 - ESSENTIAL (PRIMARY) HYPERTENSION Status: Chronic Qualifiers: Hypertension type: essential hypertension Qualified Code(s): I10 - Essential (primary) hypertension (7) Morbid obesity Code(s): E66.01 - MORBID (SEVERE) OBESITY DUE TO EXCESS CALORIES Status: Chronic (8) Obesity hypoventilation syndrome Code(s): E66.2 - MORBID (SEVERE) OBESITY WITH ALVEOLAR HYPOVENTILATION Status : Chronic - Plan OOB as rosana, PT, ambulation as tolerated d/w pt will need family assist with wound care on outpatient basis diet: as rosana dvt ppx Review of Systems - Medications/Allergies Allergies/Adverse Reactions: Allergies Allergy/AdvReac Type Severity Reaction Status Date / Time codeine Allergy Verified 09/29/17 19:23 Medications: Current Medications Acetaminophen (Tylenol) 650 mg PO Q4H PRN PRN Reason: Headache/Fever or Pain Last Admin: 10/05/17 20:11 Dose: 650 mg Hydrocodone Bitart/Acetaminophen ([place] 5/325) 1 tab PO DAILY PRN PRN Reason: Pain Albuterol/Ipratropium (Duoneb) 3 ml NEB [id number] PRN PRN Reason: SOB &/or Wheezing Amitriptyline HCl (Elavil) 25 mg PO BID [facility] Last Admin: 10/06/17 20:23 Dose: 25 mg Aspirin (Ecotrin) 81 mg PO DAILY [facility] Last Admin: 10/06/17 08:24 Dose: 81 mg Dextrose/Water (Dextrose 50%) 25 gm SLOW IVP PRN PRN PRN Reason: Hypoglycemia Docusate Sodium (Colace) 100 mg PO BID [facility] Last Admin: 10/06/17 20:23 Dose: 100 mg Famotidine (Pepcid) 20 mg PO DAILY [facility] Last Admin: 10/06/17 08:23 Dose: 20 mg Glucagon (Glucagon) 1 mg IM PRN PRN PRN Reason: Hypoglycemia Heparin Sodium (Porcine) (Heparin) 5,000 units SC BID [facility] Last Admin: 10/06/17 20:24 Dose: 5,000 units Dextrose/Water (D5w) 1,000 mls @ 0 mls/hr IV .Q0M PRN PRN Reason: Hypoglycemia Cefepime HCl 0.5 gm/Miscellaneous Medication 1 each/ Sodium Chloride 100 mls @ 200 mls/hr IVPB 2000 [facility] Last Admin: 10/06/17 20:25 Dose: 100 mls Insulin Human Lispro (Humalog) 0 units SC .MODERATE SLIDING SC PRN PRN Reason: Moderate Correctional Scale Last Admin: 10/05/17 11:19 Dose: 2 unit Insulin Human Lispro (Humalog) 0 units SC .BEDTIME SLIDING SC PRN PRN Reason: Bedtime Correctional Scale Magnesium Hydroxide (Milk Of Magnesium) 30 ml PO DAILYPRN PRN PRN Reason: Constipation Morphine Sulfate (Morphine) 2 mg SLOW IVP DAILY PRN PRN Reason: Breakthrough Pain Nystatin (Mycostatin Powder) 0 gm TOP BID [facility] Last Admin: 10/06/17 20:25 Dose: 1 applic Ondansetron HCl (Zofran Odt) 4 mg PO Q6H PRN PRN Reason: Nausea/Vomiting Simvastatin (Zocor) 20 mg PO HS [facility] Last Admin: 10/06/17 20:23 Dose: 20 mg Sodium Chloride (Flush - Normal Saline) 10 ml IVF Q12HR [facility] Last Admin: 10/06/17 20:25 Dose: 10 ml Sodium Chloride (Flush - Normal Saline) 10 ml IVF PRN PRN PRN Reason: Saline Flush Last Admin: 09/30/17 01:10 Dose: 10 ml Tramadol HCl (Ultram) 50 mg PO Q12H PRN PRN Reason: Moderate Pain (4-6) Last Admin: 10/06/17 08:22 Dose: 50 mg
[2017-10-05] MEDS: traMADol HCl 50 MG TAB PO PRN ×3 (00:20→20:11)
[2017-10-05 04:18] LABS: #Eosinphils 0.5 thou/uL (0.0-0.7); #Lymphocytes 2.8 thou/uL (1.20-3.40); #Monocytes 0.5 thou/uL (0.11-0.59); #Neutrophils 4.1 thou/uL (1.40-6.50); %Basophils 0.5 % (0.0-1.0); %Eosinophils 6.2 % (0.0-10.0); %Lymphocytes 35.3 % (21.0-51.0); %Monocytes 6.1 % (0.0-10.0); Hemoglobin 10.1 g/dL (12.0-16.0); Mean Corpuscular HGB CONC 33.7 g/dL (32.0-36.0); Mean Corpuscular Hemoglobin 31.6 pg (27.0-31.0); Mean Corpuscular Volume 93.6 fL (78.0-98.0); Mean Platelet Volume 6.6 fL (7.4-10.4); Platelet Count 319 thou/uL (130-400); RBC Distribution Width 12.8 % (11.5-14.5); Red Blood Cell (RBC) Count 3.21 mill/uL (4.20-5.40); White Blood Cell (WBC) Count 7.8 thou/uL (4.8-10.8)
[2017-10-05 05:09] LABS: Anion Gap 13 mmol/L (10-20); BUN (Urea Nitrogen) 36 mg/dL (7.0-18.7); Calc. Creatinine Clearance 83 mL/min (70-130); Calcium 8.3 mg/dL (7.8-10.44); Carbon Dioxide 20 mmol/L (22-29); Chloride 107 mmol/L (98-107); Estimated GFR-MDRD 19; Glucose 86 mg/dL (70-105); Potassium 4.5 mmol/L (3.5-5.1); Sodium 135 mmol/L (136-145)
[2017-10-05] MEDS: Aspirin 81 mg Enteric Coated Tablet PO SCH (09:22)
[2017-10-05] MEDS: Heparin 5,000 UNITS/ML VIAL SC SCH ×2 (09:22→20:09)
[2017-10-05] MEDS: Docusate 100 MG CAP PO SCH ×2 (09:22→20:09)
[2017-10-05] MEDS: Amitriptyline HCl 25 MG TAB PO SCH ×2 (09:23→20:08)
[2017-10-05] MEDS: Famotidine 20 MG TAB PO SCH (09:23)
--- NOTE | 2017-10-05 10:17 | PRG ---
DATE OF SERVICE: 10/05/2017 SUBJECTIVE: This is a 47-year-old female being seen for acute kidney injury. The patient denies any nausea, vomiting or chest pain. PHYSICAL EXAMINATION: GENERAL: Patient is awake, alert. VITAL SIGNS: Afebrile, pulse 84, breathing at 16, blood pressure 124/62. HEAD/NECK: Normocephalic. Atraumatic. EYES: EOMI. No deformity. EARS: Clear. No ulcers. NOSE: Intact. No lesions. MOUTH: Clear. No discharge. THROAT: Clear. No exudate. LUNGS: Clear. No crackles. CARDIAC: S1, S2. No rub. ABDOMEN: Benign. BS+. GENITALIA/RECTUM: Gold absent. BACK/EXTREMITIES: Edema 0+ Ulcer- NEUROLOGICAL: Alert and motor intact. SKIN: Rash- Bruise- LYMPHATICS: Edema- Ulcer- LABORATORY DATA: Show hemoglobin 10.1 and creatinine 2.6. ASSESSMENT AND RECOMMENDATIONS: 1. Acute kidney injury, improved. 2. Hypertension, stable. 3. Anemia, stable. 4. Metabolic acidosis, stable. 5. Hyperkalemia, stable. No indication for dialysis. Continue hydration.
[2017-10-05] MEDS: Nystatin Powder 15 GM BOT TOP SCH ×2 (10:46→20:09)
[2017-10-05] MEDS: HumaLOG 300 UNITS/3 ML VIAL SC PRN (11:19)
--- NOTE | 2017-10-05 11:28 | PRG ---
DATE OF SERVICE: 10/05/2017 SERVICE: Pulmonary Medicine. INTERVAL HISTORY: The patient is doing fine from a respiratory standpoint. Denies any current chest pain, nausea, vomiting, fevers or chills. Otherwise, there has been no interval change to her condi tion. She actually feels much improved today. She seems to finally have turned the corner. Urine o utput is improving. Kidney injury has resolved. Otherwise, there has been minimal change to her con dition. PHYSICAL EXAMINATION: VITAL SIGNS: Afebrile, pulse 83, blood pressure 134/50, respirations 20, saturation 97% on room air. GENERAL: The patient is awake, alert, no apparent distress. LUNGS: Excellent air entry. There is no prolonged expiratory phase, wheezing, rhonchi, or crackles present. HEART: Normal rate, regular. ABDOMEN: Soft, nontender, nondistended. Bowel sounds are positive. MUSCULOSKELETAL: No cyanosis or clubbing. There is trace to 1+ pitting in the bilateral lower extre mities. NEUROLOGIC: Grossly nonfocal. LABORATORY DATA: WBC 7.8, hemoglobin 10.1, platelets 319,000. Creatinine is improving to 2.66, BUN 36, bicarbonate 20, potassium 4.5. Basic metabolic profile is otherwise unremarkable with improving sodium. Blood cultures x2 are negative. ASSESSMENT: 1. Severe sepsis. 2. Cellulitis and abscess of the left lower extremity, status post incision and drainage and subsequ ent debridement. 3. Acute kidney injury, resolving. 4. Morbid obesity with underlying hypoventilation. 5. Obstructive sleep apnea, severe. DISCUSSION AND PLAN: The patient is once again stable for transition to the floor. I would like for her to mobilize as much as possible. Will have work with physical therapy, walk, and get into a marium ir frequently. From my perspective, she has no further requirements for inpatient Pulmonary or criti federico care opinion, and when she arrived on the floor, I will sign off.
--- NOTE | 2017-10-05 19:05 | PDOC.GSPN ---
Surgery Progress Note: Subj - Subjective Narrative: Patient continues to feel better. The pain in her left calf is basically resolved except for during dressing changes. Erythema has improved. Hematocrit is stable. I will see her with the wound care team tomorrow. Surgery Progress Note: Obj - Vital signs Vital signs: Vital Signs - Most Recent Temp Pulse Resp BP Pulse Ox 97.8 F 84 20 116/41 L 95 10/05/17 15:28 10/05/17 16:14 10/05/17 15:28 10/05/17 16:14 10/05/17 16:14 Surgery Progress Note: Results - Labs Result Diagrams: 10/05/17 04:02 10/05/17 04:02 Lab results: Laboratory Results - last 24 hr 10/05/17 10/05/17 10:44 16:45 POC Glucose 175 H 101
[2017-10-05] MEDS: Cefepime 0.5 GM, Admixture Fee 1 EACH in Sodium Chloride 0.9% 100 ML IVPB SCH (20:08)
[2017-10-05] MEDS: Simvastatin 20 MG TAB PO SCH (20:09)
[2017-10-06] MEDS: traMADol HCl 50 MG TAB PO PRN (08:22)
[2017-10-06] MEDS: Amitriptyline HCl 25 MG TAB PO SCH ×2 (08:23→20:23)
[2017-10-06] MEDS: Famotidine 20 MG TAB PO SCH (08:23)
[2017-10-06] MEDS: Heparin 5,000 UNITS/ML VIAL SC SCH ×2 (08:23→20:24)
[2017-10-06] MEDS: Docusate 100 MG CAP PO SCH ×2 (08:23→20:23)
[2017-10-06] MEDS: Aspirin 81 mg Enteric Coated Tablet PO SCH (08:24)
[2017-10-06] MEDS: Nystatin Powder 15 GM BOT TOP SCH ×2 (08:24→20:25)
--- NOTE | 2017-10-06 09:51 | PRG ---
DATE OF SERVICE: 10/06/2017 SUBJECTIVE: This is a 47-year-old female being seen for acute kidney injury. The patient denies any nausea, vomiting or chest pain. PHYSICAL EXAMINATION: GENERAL: Patient is awake and alert. VITAL SIGNS: Afebrile, pulse 94, breathing 16, blood pressure 154/76. OBJECTIVE: See above. Awake, alert, in no acute distress. GENERAL APPEARANCE AND MENTAL STATUS: Fair. HEAD/NECK: Normocephalic. Atraumatic. EYES: EOMI. No deformity. EARS: Clear. No ulcers. NOSE: Intact. No lesions. MOUTH: Clear. No discharge. THROAT: Clear. No exudate. LUNGS: Clear. No crackles. CARDIAC: S1, S2. No rub. ABDOMEN: Benign. BS+. GENITALIA/RECTUM: Gold absent. BACK/EXTREMITIES: Edema 0+ Ulcer- NEUROLOGICAL: Alert and motor intact. SKIN: Rash- Bruise- LYMPHATICS: Edema- Ulcer- LABORATORY: Hemoglobin 10.1, creatinine is pending. ASSESSMENT AND RECOMMENDATIONS: 1. Chronic kidney disease stage 4 with acute kidney injury. Follow up creatinine. 2. Hypertension, stable. 3. Anemia, stable. 4. Medication based on glomerular filtration rate are appropriate. If the creatinine drops I will sign off today.
[2017-10-06 10:08] LABS: Anion Gap 13 mmol/L (10-20); BUN (Urea Nitrogen) 27 mg/dL (7.0-18.7); Calc. Creatinine Clearance 134 mL/min (70-130); Carbon Dioxide 20 mmol/L (22-29); Chloride 110 mmol/L (98-107); Estimated GFR-MDRD 33; Glucose 100 mg/dL (70-105); Potassium 4.9 mmol/L (3.5-5.1); Sodium 138 mmol/L (136-145)
[2017-10-06] MEDS ORDERED: HYDROcodone/Acetaminophen 5/325 mg Tablet PO PRN (10:42)
--- NOTE | 2017-10-06 19:01 | PRG ---
DATE OF SERVICE: 10/06/2017 SERVICE: Pulmonary medicine. INTERVAL HISTORY: The patient is doing fine from a respiratory standpoint. She denies any current c hest pain, nausea, vomiting, fevers, or chills. Her leg discomfort is improving a little bit. She h as no breathing difficulties. Otherwise, there has been no interval change to her condition. PHYSICAL EXAMINATION: VITAL SIGNS: Afebrile, pulse 90, blood pressure 125/80, respirations 16, saturation 94% on room air. GENERAL: The patient is awake, alert, in no apparent distress. LUNGS: Excellent air entry. There is no prolonged expiratory phase, wheezing, rhonchi, or crackles. HEART: Normal rate, regular. ABDOMEN: Soft, nontender, nondistended. Bowel sounds are positive. MUSCULOSKELETAL: No cyanosis or clubbing. There is no pitting in the bilateral lower extremities. NEUROLOGIC: Grossly nonfocal. LABORATORY DATA: Creatinine 1.67, BUN 27 and beautifully down trending, bicarbonate 20. Basic metab olic profile is otherwise unremarkable. Staph aureus is growing in the calf. Blood cultures x2 amrshall in negative. ASSESSMENT: 1. Severe sepsis. 2. Cellulitis and abscess of the left lower extremity, status post incision and drainage and subsequ ent debridement. 3. Acute kidney injury, resolving. 4. Morbid obesity with underlying hypoventilation. 5. Obstructive sleep apnea, severe. DISCUSSION AND PLAN: At this point, the patient has no further requirements for inpatient pulmonary critical care opinion. As such, I will sign off. Please call with additional questions or concerns moving forward. In the outpatient setting, it will be absolutely imperative for her to restrict alie brody to promote a healthy weight reduction 1-2 pounds per week for the next couple of years. She estes s understand that if she continues to put weight on, at some point, she will develop chronic respirat ory failure requiring possible intubation and tracheostomy if we do not catch her before she dies.
[2017-10-06] MEDS: Simvastatin 20 MG TAB PO SCH (20:23)
[2017-10-06] MEDS: Cefepime 0.5 GM, Admixture Fee 1 EACH in Sodium Chloride 0.9% 100 ML IVPB SCH (20:25)
--- NOTE | 2017-10-06 23:20 | PDOC.GSPN ---
Surgery Progress Note: Subj - Subjective Narrative: Patient seen with wound care team today. She is feeling better. Her leg hurts less each day. The wound is clean and filling in quickly and erythema has diminished. She has been [facility] to [facility]. We will continue with dressing changes and try to arrange for help with these at home. If the patient is unable to manage her wounds at home, placement may be necessary. Cultures are growing staph aureus but susceptibilities are pending. Surgery Progress Note: Obj - Vital signs Vital signs: Vital Signs - Most Recent Temp Pulse Resp BP Pulse Ox 97.9 F 93 12 129/75 94 L 10/06/17 20:00 10/06/17 20:00 10/06/17 20:00 10/06/17 18:33 10/06/17 20:00 Surgery Progress Note: Results - Labs Result Diagrams: 10/05/17 04:02 10/06/17 09:28 Lab results: Laboratory Results - last 24 hr 10/06/17 10/06/17 10/06/17 11:07 16:11 20:25 POC Glucose 107 136 H 101
--- NOTE | 2017-10-06 23:39 | PDOC.PN ---
- Subjective Encounter Start Date: 10/05/17 Encounter Start Time: 19:00 Subjective: nsg notes rev, luna ovn, no new issues -: pt no new c/o, was able to get up even though it was uncomfortable - Objective Resuscitation Status: Resuscitation Status FULL:Full Resuscitation Vital Signs & Weight: Vital Signs (12 hours) Temp Pulse Resp BP Pulse Ox 10/06/17 20:00 97.9 F 93 12 94 L 10/06/17 18:33 97.9 F 93 12 129/75 94 L 10/06/17 16:59 98.0 F 90 16 93 L 10/06/17 16:47 98.0 F 90 16 125/80 94 L Weight Admit Weight 439 lb 3.04 oz Weight 453 lb Most Recent Monitor Data Heart Rate from ECG 107 NIBP 109/46 NIBP BP-Mean 63 Respiration from ECG 25 SpO2 95 I&O: 10/05/17 10/06/17 10/07/17 06:59 06:59 06:59 Intake Total 838 1420 240 Output Total 650 3750 Balance 188 -2330 240 Result Diagrams: 10/05/17 04:02 10/06/17 09:28 Additional Labs: Accuchecks 10/06/17 10/06/17 10/06/17 20:25 16:11 11:07 POC Glucose 101 136 H 107 10/06/17 05:51 POC Glucose 110 Dx/Plan - Plan (1) Acute renal failure Status: Acute apprec nephrology c/s re: IVF and renal maintence (2) Cellulitis of leg, left Code(s): L03.116 - CELLULITIS OF LEFT LOWER LIMB Status: Acute improv apprec surg c/s s/p I&D, pending cx, will need wound care empiric abx, will narrow to oral regimen when sensitivities are available (3) COPD (chronic obstructive pulmonary disease) Status: Chronic Qualifiers: COPD type: unspecified COPD Qualified Code(s): J44.9 - Chronic obstructive pulmonary disease, unspecified (4) Diabetes type 2, controlled Code(s): E11.9 - TYPE 2 DIABETES MELLITUS WITHOUT COMPLICATIONS Status: Chronic Qualifiers: Diabetes mellitus complication status: with kidney complications Diabetes mellitus complication detail: with other kidney complication improved ctrl at this point in time (5) Dyslipidemia Code(s): E78.5 - HYPERLIPIDEMIA, UNSPECIFIED Status: Chronic (6) Hypertension Code(s): I10 - ESSENTIAL (PRIMARY) HYPERTENSION Status: Chronic Qualifiers: Hypertension type: essential hypertension Qualified Code(s): I10 - Essential (primary) hypertension (7) Morbid obesity Code(s): E66.01 - MORBID (SEVERE) OBESITY DUE TO EXCESS CALORIES Status: Chronic (8) Obesity hypoventilation syndrome Code(s): E66.2 - MORBID (SEVERE) OBESITY WITH ALVEOLAR HYPOVENTILATION Status : Chronic - Plan OOB as rosana, PT, ambulation as tolerated - important to prevent deconditioning d/w pt will need family assist with wound care on outpatient basis diet: as rosana dvt ppx
--- NOTE | 2017-10-06 23:41 | PDOC.PN ---
- Subjective Encounter Start Date: 10/06/17 Encounter Start Time: 15:00 Subjective: nsg notes rev, luna ovn, no new c/o, pain is improved at rest, with dressing -: changes, and with ambulation - Objective Resuscitation Status: Resuscitation Status FULL:Full Resuscitation Vital Signs & Weight: Vital Signs (12 hours) Temp Pulse Resp BP Pulse Ox 10/06/17 20:00 97.9 F 93 12 94 L 10/06/17 18:33 97.9 F 93 12 129/75 94 L 10/06/17 16:59 98.0 F 90 16 93 L 10/06/17 16:47 98.0 F 90 16 125/80 94 L Weight Admit Weight 439 lb 3.04 oz Weight 453 lb Most Recent Monitor Data Heart Rate from ECG 107 NIBP 109/46 NIBP BP-Mean 63 Respiration from ECG 25 SpO2 95 I&O: 10/05/17 10/06/17 10/07/17 06:59 06:59 06:59 Intake Total 838 1420 240 Output Total 650 3750 Balance 188 -2330 240 Result Diagrams: 10/05/17 04:02 10/06/17 09:28 Additional Labs: Accuchecks 10/06/17 10/06/17 10/06/17 20:25 16:11 11:07 POC Glucose 101 136 H 107 10/06/17 05:51 POC Glucose 110 Phys Exam - Physical Examination Constitutional: NAD lying in hospital bed HEENT: moist MMs Respiratory: no wheezing, no rales, no rhonchi, clear to auscultation bilateral Cardiovascular: RRR, no rub Gastrointestinal: positive bowel sounds Neurological: moves all 4 limbs Dx/Plan - Plan (1) Acute renal failure Status: Acute apprec nephrology improving (2) Cellulitis of leg, left Code(s): L03.116 - CELLULITIS OF LEFT LOWER LIMB Status: Acute apprec surg c/s s/p I&D, pending cx, will need wound care empiric abx, will narrow to oral regimen when sensitivities are available (3) COPD (chronic obstructive pulmonary disease) Status: Chronic Qualifiers: COPD type: unspecified COPD Qualified Code(s): J44.9 - Chronic obstructive pulmonary disease, unspecified (4) Diabetes type 2, controlled Code(s): E11.9 - TYPE 2 DIABETES MELLITUS WITHOUT COMPLICATIONS Status: Chronic Qualifiers: Diabetes mellitus complication status: with kidney complications Diabetes mellitus complication detail: with other kidney complication improved ctrl at this point in time (5) Dyslipidemia Code(s): E78.5 - HYPERLIPIDEMIA, UNSPECIFIED Status: Chronic (6) Hypertension Code(s): I10 - ESSENTIAL (PRIMARY) HYPERTENSION Status: Chronic Qualifiers: Hypertension type: essential hypertension Qualified Code(s): I10 - Essential (primary) hypertension (7) Morbid obesity Code(s): E66.01 - MORBID (SEVERE) OBESITY DUE TO EXCESS CALORIES Status: Chronic (8) Obesity hypoventilation syndrome Code(s): E66.2 - MORBID (SEVERE) OBESITY WITH ALVEOLAR HYPOVENTILATION Status : Chronic - Plan OOB as rosana, PT, ambulation as tolerated - important to prevent deconditioning d/w pt will need family assist with wound care on outpatient basis diet: as rosana dvt ppx
[2017-10-07 09:42] LABS: Anion Gap 9 mmol/L (10-20); BUN (Urea Nitrogen) 18 mg/dL (7.0-18.7); Calc. Creatinine Clearance 168 mL/min (70-130); Calcium 8.9 mg/dL (7.8-10.44); Carbon Dioxide 28 mmol/L (22-29); Chloride 109 mmol/L (98-107); Estimated GFR-MDRD 43; Glucose 90 mg/dL (70-105); Potassium 4.5 mmol/L (3.5-5.1); Sodium 141 mmol/L (136-145)
--- NOTE | 2017-10-07 09:52 | PDOC.PN ---
- Subjective Encounter Start Date: 10/07/17 Encounter Start Time: 09:51 Subjective: nsg notes rev, luna ovn, pt no new c/o overall feels "better" - stated her -: niece is willing to learn how to dress the wounds for the patient - Objective Resuscitation Status: Resuscitation Status FULL:Full Resuscitation Vital Signs & Weight: Vital Signs (12 hours) Temp Pulse Resp BP Pulse Ox 10/07/17 07:37 97.9 F 75 18 137/82 93 L 10/07/17 00:00 95 Weight Admit Weight 439 lb 3.04 oz Weight 453 lb Most Recent Monitor Data Heart Rate from ECG 107 NIBP 109/46 NIBP BP-Mean 63 Respiration from ECG 25 SpO2 95 I&O: 10/06/17 10/07/17 10/08/17 06:59 06:59 06:59 Intake Total 1420 640 Output Total 3750 Balance -2330 640 Result Diagrams: 10/05/17 04:02 10/07/17 09:15 Additional Labs: Accuchecks 10/07/17 10/06/17 10/06/17 04:11 20:25 16:11 POC Glucose 87 101 136 H 10/06/17 11:07 POC Glucose 107 Phys Exam - Physical Examination Constitutional: NAD seated on the edge of bed HEENT: moist MMs Respiratory: no wheezing, no rales, no rhonchi, clear to auscultation bilateral diminished 2/2 habitus Cardiovascular: RRR, no significant murmur, no rub soft heart tones 2/2 habitus Gastrointestinal: positive bowel sounds Neurological: moves all 4 limbs Psychiatric: normal affect, A&O x 3 Dx/Plan - Plan (1) Acute renal failure Status: Acute apprec nephrology sig improved (2) Cellulitis of leg, left Code(s): L03.116 - CELLULITIS OF LEFT LOWER LIMB Status: Acute apprec surg c/s s/p I&D, pending cx, will need wound care empiric abx, will narrow to oral regimen when sensitivities are available - still pending staph aureus (3) COPD (chronic obstructive pulmonary disease) Status: Chronic Qualifiers: COPD type: unspecified COPD Qualified Code(s): J44.9 - Chronic obstructive pulmonary disease, unspecified (4) Diabetes type 2, controlled Code(s): E11.9 - TYPE 2 DIABETES MELLITUS WITHOUT COMPLICATIONS Status: Chronic Qualifiers: Diabetes mellitus complication status: with kidney complications Diabetes mellitus complication detail: with other kidney complication improved ctrl at this point in time (5) Dyslipidemia Code(s): E78.5 - HYPERLIPIDEMIA, UNSPECIFIED Status: Chronic (6) Hypertension Code(s): I10 - ESSENTIAL (PRIMARY) HYPERTENSION Status: Chronic Qualifiers: Hypertension type: essential hypertension Qualified Code(s): I10 - Essential (primary) hypertension (7) Morbid obesity Code(s): E66.01 - MORBID (SEVERE) OBESITY DUE TO EXCESS CALORIES Status: Chronic (8) Obesity hypoventilation syndrome Code(s): E66.2 - MORBID (SEVERE) OBESITY WITH ALVEOLAR HYPOVENTILATION Status : Chronic - Plan OOB as rosana, PT, ambulation as tolerated - important to prevent deconditioning d/w pt will need family assist with wound care on outpatient basis diet: as rosana dvt ppx d/w pt at bedside Review of Systems - Medications/Allergies Allergies/Adverse Reactions: Allergies Allergy/AdvReac Type Severity Reaction Status Date / Time codeine Allergy Verified 09/29/17 19:23 Medications: Current Medications Acetaminophen (Tylenol) 650 mg PO Q4H PRN PRN Reason: Headache/Fever or Pain Last Admin: 10/05/17 20:11 Dose: 650 mg Hydrocodone Bitart/Acetaminophen ([place] 5/325) 1 tab PO DAILY PRN PRN Reason: Pain Albuterol/Ipratropium (Duoneb) 3 ml NEB [id number] PRN PRN Reason: SOB &/or Wheezing Amitriptyline HCl (Elavil) 25 mg PO BID [facility] Last Admin: 10/06/17 20:23 Dose: 25 mg Aspirin (Ecotrin) 81 mg PO DAILY [facility] Last Admin: 10/06/17 08:24 Dose: 81 mg Dextrose/Water (Dextrose 50%) 25 gm SLOW IVP PRN PRN PRN Reason: Hypoglycemia Docusate Sodium (Colace) 100 mg PO BID [facility] Last Admin: 10/06/17 20:23 Dose: 100 mg Famotidine (Pepcid) 20 mg PO DAILY [facility] Last Admin: 10/06/17 08:23 Dose: 20 mg Glucagon (Glucagon) 1 mg IM PRN PRN PRN Reason: Hypoglycemia Heparin Sodium (Porcine) (Heparin) 5,000 units SC BID [facility] Last Admin: 10/06/17 20:24 Dose: 5,000 units Dextrose/Water (D5w) 1,000 mls @ 0 mls/hr IV .Q0M PRN PRN Reason: Hypoglycemia Cefepime HCl 0.5 gm/Miscellaneous Medication 1 each/ Sodium Chloride 100 mls @ 200 mls/hr IVPB 2000 [facility] Last Admin: 10/06/17 20:25 Dose: 100 mls Insulin Human Lispro (Humalog) 0 units SC .MODERATE SLIDING SC PRN PRN Reason: Moderate Correctional Scale Last Admin: 10/05/17 11:19 Dose: 2 unit Insulin Human Lispro (Humalog) 0 units SC .BEDTIME SLIDING SC PRN PRN Reason: Bedtime Correctional Scale Magnesium Hydroxide (Milk Of Magnesium) 30 ml PO DAILYPRN PRN PRN Reason: Constipation Morphine Sulfate (Morphine) 2 mg SLOW IVP DAILY PRN PRN Reason: Breakthrough Pain Nystatin (Mycostatin Powder) 0 gm TOP BID [facility] Last Admin: 10/06/17 20:25 Dose: 1 applic Ondansetron HCl (Zofran Odt) 4 mg PO Q6H PRN PRN Reason: Nausea/Vomiting Simvastatin (Zocor) 20 mg PO HS [facility] Last Admin: 10/06/17 20:23 Dose: 20 mg Sodium Chloride (Flush - Normal Saline) 10 ml IVF Q12HR [facility] Last Admin: 10/06/17 20:25 Dose: 10 ml Sodium Chloride (Flush - Normal Saline) 10 ml IVF PRN PRN PRN Reason: Saline Flush Last Admin: 09/30/17 01:10 Dose: 10 ml Tramadol HCl (Ultram) 50 mg PO Q12H PRN PRN Reason: Moderate Pain (4-6) Last Admin: 10/06/17 08:22 Dose: 50 mg
[2017-10-07] MEDS: Aspirin 81 mg Enteric Coated Tablet PO SCH (10:07)
[2017-10-07] MEDS: Heparin 5,000 UNITS/ML VIAL SC SCH ×2 (10:07→20:02)
[2017-10-07] MEDS: Famotidine 20 MG TAB PO SCH (10:07)
[2017-10-07] MEDS: Amitriptyline HCl 25 MG TAB PO SCH ×2 (10:07→20:02)
[2017-10-07] MEDS: Nystatin Powder 15 GM BOT TOP SCH ×2 (14:21→20:04)
[2017-10-07] MEDS: Docusate 100 MG CAP PO SCH ×2 (14:22→20:02)
[2017-10-07] MEDS: Simvastatin 20 MG TAB PO SCH (20:02)
[2017-10-07] MEDS: Cefepime 0.5 GM, Admixture Fee 1 EACH in Sodium Chloride 0.9% 100 ML IVPB SCH (20:06)
--- NOTE | 2017-10-07 23:02 | PDOC.GSPN ---
Surgery Progress Note: Subj - Subjective Narrative: Feels better, breathing better. Leg improved, less tender and erythema almost resolved. MSSA on culture. Will need daily wound packing at home. Can follow up in surgery clinic or at outpt [facility]. Surgery Progress Note: Obj - Vital signs Vital signs: Vital Signs - Most Recent Temp Pulse Resp BP Pulse Ox 98.0 F 98 16 119/68 97 10/07/17 20:00 10/07/17 20:00 10/07/17 20:00 10/07/17 19:29 10/07/17 20:00 Surgery Progress Note: Results - Labs Result Diagrams: 10/05/17 04:02 10/07/17 09:15 Lab results: Laboratory Results - last 24 hr 10/07/17 10/07/17 11:37 19:33 POC Glucose 86 91
[2017-10-08] MEDS: Famotidine 20 MG TAB PO SCH (07:47)
[2017-10-08] MEDS: Amitriptyline HCl 25 MG TAB PO SCH ×2 (07:47→20:21)
[2017-10-08] MEDS: Heparin 5,000 UNITS/ML VIAL SC SCH ×2 (07:47→20:20)
[2017-10-08] MEDS: Aspirin 81 mg Enteric Coated Tablet PO SCH (07:47)
[2017-10-08] MEDS: Docusate 100 MG CAP PO SCH ×2 (09:02→20:21)
[2017-10-08] MEDS: Nystatin Powder 15 GM BOT TOP SCH ×2 (09:04→20:21)
--- NOTE | 2017-10-08 15:34 | PDOC.PN ---
- Subjective Encounter Start Date: 10/08/17 Encounter Start Time: 15:33 Subjective: feels better. denies any fever/chills/leg pain - Objective Resuscitation Status: Resuscitation Status FULL:Full Resuscitation MAR Reviewed: Yes Vital Signs & Weight: Vital Signs (12 hours) Temp Pulse Resp BP Pulse Ox 10/08/17 08:00 97.7 F 79 18 91 L 10/08/17 07:44 97.7 F 79 18 142/93 H 91 L Weight Admit Weight 439 lb 3.04 oz Weight 453 lb Most Recent Monitor Data Heart Rate from ECG 107 NIBP 109/46 NIBP BP-Mean 63 Respiration from ECG 25 SpO2 95 I&O: 10/07/17 10/08/17 10/09/17 06:59 06:59 06:59 Intake Total 640 Balance 640 Result Diagrams: 10/05/17 04:02 10/07/17 09:15 Additional Labs: Accuchecks 10/08/17 10/08/17 10/07/17 11:18 04:04 19:33 POC Glucose 95 91 91 Microbiology 10/02/17 20:45 Calf Bacterial Culture - Final Staphylococcus aureus 09/29/17 14:06 Venous blood - Left Arm Blood Culture - Final NO GROWTH IN 5 DAYS 09/29/17 13:59 Venous blood - Right Arm Blood Culture - Final NO GROWTH IN 5 DAYS Laboratory Tests 09/29/17 09/29/17 09/30/17 13:59 13:59 05:14 WBC 17.3 H 15.6 H Creatinine 0.81 10/01/17 10/01/17 10/02/17 04:16 04:16 03:39 WBC 15.3 H Creatinine 3.87 H 5.73 H 10/02/17 10/03/17 10/03/17 03:39 04:31 04:31 WBC 14.4 H 14.7 H Creatinine 4.77 H 10/04/17 10/04/17 10/05/17 03:44 03:44 04:02 WBC 11.5 H Creatinine 3.89 H 2.66 H 10/05/17 10/06/17 10/07/17 04:02 09:28 09:15 WBC 7.8 Creatinine 1.67 H 1.33 H labs reviewed Phys Exam - Physical Examination Constitutional: NAD HEENT: PERRLA, moist MMs, sclera anicteric, oral pharynx no lesions Neck: no nodes, no JVD, supple, full ROM Respiratory: no wheezing, no rales, no rhonchi, clear to auscultation bilateral Cardiovascular: RRR, no significant murmur, no rub Gastrointestinal: soft, non-tender, no distention, positive bowel sounds Musculoskeletal: no edema, pulses present LLE wound on lateral side with dressing Neurological: non-focal, normal sensation, moves all 4 limbs Psychiatric: normal affect, A&O x 3 Skin: no rash Dx/Plan (1) Cellulitis of leg, left Code(s): L03.116 - CELLULITIS OF LEFT LOWER LIMB Status: Acute Comment: MSSA +ve culture (2) SHARON (acute kidney injury) Code(s): N17.9 - ACUTE KIDNEY FAILURE, UNSPECIFIED Status: Acute Comment: Much improved (3) COPD (chronic obstructive pulmonary disease) Status: Chronic Qualifiers: COPD type: unspecified COPD Qualified Code(s): J44.9 - Chronic obstructive pulmonary disease, unspecified (4) Diabetes type 2, controlled Code(s): E11.9 - TYPE 2 DIABETES MELLITUS WITHOUT COMPLICATIONS Status: Chronic Qualifiers: Diabetes mellitus complication status: with kidney complications Diabetes mellitus complication detail: with other kidney complication (5) Dyslipidemia Code(s): E78.5 - HYPERLIPIDEMIA, UNSPECIFIED Status: Chronic (6) Hypertension Code(s): I10 - ESSENTIAL (PRIMARY) HYPERTENSION Status: Chronic Qualifiers: Hypertension type: essential hypertension Qualified Code(s): I10 - Essential (primary) hypertension (7) Morbid obesity Code(s): E66.01 - MORBID (SEVERE) OBESITY DUE TO EXCESS CALORIES Status: Chronic (8) Obesity hypoventilation syndrome Code(s): E66.2 - MORBID (SEVERE) OBESITY WITH ALVEOLAR HYPOVENTILATION Status : Chronic (9) Sleep apnea Code(s): G47.30 - SLEEP APNEA, UNSPECIFIED Status: Chronic - Plan continue antibiotics, PT/OT, out of bed/ambulate, DVT proph w/SCDs cont IV Abx. change to PO on DC -: will try to arrange Jennifer wound care.if not arranged,Pt & family will do -: hemodynamically stable. monitor renal Fx.much better now -: meds as below. -: am labs * . Review of Systems - Review of Systems Constitutional: negative: fever, chills, sweats, weakness, malaise, other ENT: negative: Ear Pain, Ear Discharge, Nose Pain, Nose Discharge, Nose Congestion, Mouth Pain, Mouth Swelling, Throat Pain, Throat Swelling, Other Respiratory: negative: Cough, Dry, Shortness of Breath, Hemoptysis, SOB with Excertion, Pleuritic Pain, Sputum, Wheezing Cardiovascular: negative: chest pain, palpitations, orthopnea, paroxysmal nocturnal dyspnea, edema, light headedness, other Gastrointestinal: negative: Nausea, Vomiting, Abdominal Pain, Diarrhea, Constipation, Melena, Hematochezia, Other Genitourinary: negative: Dysuria, Frequency, Incontinence, Hematuria, Retention , Other Musculoskeletal: negative: Neck Pain, Shoulder Pain, Arm Pain, Back Pain, Hand Pain, Leg Pain, Foot Pain, Other Skin: negative: Rash, Lesions, Geronimo, Bruising, Other Neurological: negative: Weakness, Numbness, Incoordination, Change in Speech, Confusion, Seizures, Other - Medications/Allergies Allergies/Adverse Reactions: Allergies Allergy/AdvReac Type Severity Reaction Status Date / Time codeine Allergy Verified 09/29/17 19:23 Medications: Current Medications Acetaminophen (Tylenol) 650 mg PO Q4H PRN PRN Reason: Headache/Fever or Pain Last Admin: 10/05/17 20:11 Dose: 650 mg Hydrocodone Bitart/Acetaminophen ([place] 5/325) 1 tab PO DAILY PRN PRN Reason: Pain Albuterol/Ipratropium (Duoneb) 3 ml NEB [id number] PRN PRN Reason: SOB &/or Wheezing Amitriptyline HCl (Elavil) 25 mg PO BID [facility] Last Admin: 10/08/17 07:47 Dose: 25 mg Aspirin (Ecotrin) 81 mg PO DAILY [facility] Last Admin: 10/08/17 07:47 Dose: 81 mg Dextrose/Water (Dextrose 50%) 25 gm SLOW IVP PRN PRN PRN Reason: Hypoglycemia Docusate Sodium (Colace) 100 mg PO BID [facility] Last Admin: 10/08/17 09:02 Dose: Not Given Famotidine (Pepcid) 20 mg PO DAILY [facility] Last Admin: 10/08/17 07:47 Dose: 20 mg Glucagon (Glucagon) 1 mg IM PRN PRN PRN Reason: Hypoglycemia Heparin Sodium (Porcine) (Heparin) 5,000 units SC BID [facility] Last Admin: 10/08/17 07:47 Dose: 5,000 units Dextrose/Water (D5w) 1,000 mls @ 0 mls/hr IV .Q0M PRN PRN Reason: Hypoglycemia Cefepime HCl 0.5 gm/Miscellaneous Medication 1 each/ Sodium Chloride 100 mls @ 200 mls/hr IVPB 2000 [facility] Last Admin: 10/07/17 20:06 Dose: 100 mls Insulin Human Lispro (Humalog) 0 units SC .MODERATE SLIDING SC PRN PRN Reason: Moderate Correctional Scale Last Admin: 10/05/17 11:19 Dose: 2 unit Insulin Human Lispro (Humalog) 0 units SC .BEDTIME SLIDING SC PRN PRN Reason: Bedtime Correctional Scale Magnesium Hydroxide (Milk Of Magnesium) 30 ml PO DAILYPRN PRN PRN Reason: Constipation Morphine Sulfate (Morphine) 2 mg SLOW IVP DAILY PRN PRN Reason: Breakthrough Pain Last Admin: 10/08/17 11:55 Dose: 2 mg Nystatin (Mycostatin Powder) 0 gm TOP BID [facility] Last Admin: 10/08/17 09:04 Dose: 1 applic Ondansetron HCl (Zofran Odt) 4 mg PO Q6H PRN PRN Reason: Nausea/Vomiting Simvastatin (Zocor) 20 mg PO HS [facility] Last Admin: 10/07/17 20:02 Dose: 20 mg Sodium Chloride (Flush - Normal Saline) 10 ml IVF Q12HR [facility] Last Admin: 10/08/17 09:04 Dose: 10 ml Sodium Chloride (Flush - Normal Saline) 10 ml IVF PRN PRN PRN Reason: Saline Flush Last Admin: 09/30/17 01:10 Dose: 10 ml Tramadol HCl (Ultram) 50 mg PO Q12H PRN PRN Reason: Moderate Pain (4-6) Last Admin: 10/06/17 08:22 Dose: 50 mg
--- NOTE | 2017-10-08 16:01 | PDOC.GSPN ---
Surgery Progress Note: Subj - Subjective Narrative: Patient is feeling better. She is not having as much pain with the dressing changes. The erythema has basically resolved although the skin is somewhat discolored still. The wounds are clean and her calf is soft and nontender. MSSA on wound cultures. Once the patient's family has been taught how to do her dressing changes or once home health wound care has been set up, she is ready for discharge from a surgical standpoint. I'll see her back in my clinic in a couple weeks. Surgery Progress Note: Obj - Vital signs Vital signs: Vital Signs - Most Recent Temp Pulse Resp BP Pulse Ox 97.7 F 79 18 142/93 H 91 L 10/08/17 08:00 10/08/17 08:00 10/08/17 08:00 10/08/17 07:44 10/08/17 08:00 Surgery Progress Note: Results - Labs Result Diagrams: 10/05/17 04:02 10/07/17 09:15 Lab results: Laboratory Results - last 24 hr 10/08/17 10/08/17 04:04 11:18 POC Glucose 91 95
[2017-10-08] MEDS ORDERED: Saccharomyces boulardii 250 MG CAP PO SCH (16:30)
[2017-10-08] MEDS: Simvastatin 20 MG TAB PO SCH (20:21)
[2017-10-09 05:48] LABS: Anion Gap 13 mmol/L (10-20); BUN (Urea Nitrogen) 11 mg/dL (7.0-18.7); Calc. Creatinine Clearance 217 mL/min (70-130); Calcium 8.8 mg/dL (7.8-10.44); Carbon Dioxide 26 mmol/L (22-29); Chloride 109 mmol/L (98-107); Estimated GFR-MDRD 57; Glucose 87 mg/dL (70-105); Potassium 4.7 mmol/L (3.5-5.1); Sodium 143 mmol/L (136-145)
[2017-10-09] MEDS: Heparin 5,000 UNITS/ML VIAL SC SCH (07:33)
[2017-10-09] MEDS: Famotidine 20 MG TAB PO SCH (07:33)
[2017-10-09] MEDS: Nystatin Powder 15 GM BOT TOP SCH (07:34)
[2017-10-09] MEDS: Docusate 100 MG CAP PO SCH (07:34)
[2017-10-09] MEDS: Amitriptyline HCl 25 MG TAB PO SCH (07:34)
[2017-10-09] MEDS: Aspirin 81 mg Enteric Coated Tablet PO SCH (07:34)
[2017-10-09 07:42] VITALS: BP 115/77; TEMP 97.8
[2017-10-09] MEDS ORDERED: Saccharomyces boulardii 250 MG CAP PO SCH (09:00)
--- NOTE | 2017-10-09 22:50 | DIS ---
DATE OF ADMISSION: 09/29/2017 DATE OF DISCHARGE: 10/09/2017 DISCHARGE DISPOSITION: Home. PRIMARY CARE PHYSICIAN: [facility]. DISCHARGE DIAGNOSES: 1. Acute renal insufficiency, resolved. 2. Left lower extremity cellulitis and abscess, status post incision and drainage. 3. Methicillin-susceptible Staphylococcus aureus positive left leg infection. 4. Morbid obesity with a body mass index of 88. 5. Obstructive sleep apnea. 6. Chronic obstructive pulmonary disease, on home oxygen. 7. Asthma. 8. Hypertension. 9. Dyslipidemia. DISCHARGE MEDICATIONS: Levofloxacin 500 mg p.o. daily for 10 more days, Florastor 250 mg p.o. daily for 14 days, tramadol as needed 50 mg every 4 to 6 hours. Resume home medication as follows: Raniti dine 150 mg p.o. b.i.d., metformin 1000 mg p.o. b.i.d., simvastatin 20 mg daily, potassium chloride 2 0 mEq daily, Lasix 40 mg p.o. b.i.d., lisinopril 10 mg daily, carvedilol 6.25 mg p.o. b.i.d., aspirin 81 mg daily, amitriptyline 25 mg p.o. b.i.d., nystatin powder topically as needed, docusate p.r.n., acetaminophen p.r.n. CONSULTATIONS INHOUSE: 1. Nephrology, Dr. Aragon. 2. General Surgery, Dr. Bolanos. 3. Pulmonary Medicine, Dr. Duarte. PROCEDURES DONE IN THE HOSPITAL: Includin. Vascular ultrasound upon presentation to the ER of left lower extremity, which is negative for an y evidence of DVT. 2. Renal ultrasound, which is negative for any obstruction shows a small left renal cyst. 3. Soft tissue ultrasound on 10/02/2017 of left leg vein, which shows irregular fluid collection in the upper margin of the left lower leg, possibly an abscess. 4. I&D of the left leg abscess. HISTORY OF PRESENTING ILLNESS: Ms. Buckley is a morbidly obese 47-year-old female with history of winter betes, hypertension, dyslipidemia, COPD, and chronic respiratory failure, who presented to the emerge ncy room with complaints of pain and swelling in the left leg. Left lower extremity DVT was ruled ou t in the emergency room. She was admitted with a presumptive diagnosis of cellulitis with leukocytos is and low grade fever and started on broad spectrum IV antibiotics. Please see admission history an d physical for further detail. She was otherwise hemodynamically stable upon presentation. HOSPITAL COURSE: As soon as after presentation, the patient was treated with IV antibiotic and IV fl uids and developed trouble breathing and Pulmonary Medicine was consulted. Dr. Kirkpatrick and Dr. Mason mg saw the patient. She was treated intermittently with BiPAP as needed and will be backed off from the fluids. She unfortunately developed renal insufficiency while in the hospital and Nephrology has to be consul mary lou. Creatinine on admission was 0.8, which went up to 3.8 and she stopped making urine. In and out catheter demonstrated no urine. Dr. Aragon saw the patient and thought that this is possibly acute tubular necrosis. A renal ultrasound was done, which was negative for any obstruction. She also lazo d evidence of hyponatremia at this time and Dr. Aragon suspected fasciitis and General Surgery was c onsulted. Dr. Bolanos saw the patient and a soft tissue ultrasound was done which was concerning for an abscess. She underwent I&D of the abscess and the culture was sent. It was positive for MSSA. Dr. Bolanos thought this most likely is an infected hematoma. After the incision and drainage, a lar ge amount of clot was extracted from this collection. Dressing changes and wound care was ordered fo r the patient and eventually she recovered. Her kidney function improved as well spontaneously and s he started to make copious urine. By the time of discharge, her renal function has stabilized with a serum creatinine and BUN in the no rmal range and estimated GFR of 57, which is improved from GFR of 8. She was treated with IV antibiotics in the hospital and changed to oral antibiotics on discharge. It was sensitive to levofloxacin, which was chosen. As the patient does not have any insurance, [facility]htyn home wound care was not able to be arranged for h er. Her family and daughter were taught how to do dressing changes by the wound care team in the [facility] and they demonstrated teach back. Supplies were provided to the patient and they were discharg ed to follow up outpatient with Dr. Bolanos. She was seen and examined prior to discharge. PHYSICAL EXAMINATION: VITAL SIGNS: This morning, temperature 97.8, pulse of 83, respirations 22, saturating 90% on room ai r, blood pressure 115/77. GENERAL: No acute distress. Awake, alert, oriented x3, no new complaints. CHEST: Clear to auscultation bilaterally. CARDIOVASCULAR: Rate and rhythm is regular. EXTREMITIES: Left lower extremity examination showed significantly improved erythema and edema witho ut any significant swelling. LABORATORY EXAMINATION: Blood culture remained negative x2 in 5 days and wound culture showed MSSA, which was resistant to piperacillin and amoxicillin. Total time spent in the discharge 35 minutes.
--- NOTE | 2017-10-14 11:19 | EKG ---
Test Reason : Blood Pressure : / mmHG Vent. Rate : 104 BPM Atrial Rate : 104 BPM P-R Int : 130 ms QRS Dur : 084 ms QT Int : 354 ms P-R-T Axes : 057 011 051 degrees QTc Int : 465 ms Sinus tachycardia Otherwise normal ECG Confirmed by HEIDI RYAN DO ([id number]), slot editor FEDERICO KAHN ([id number] on 10/14/2017 11:19:22 AM Referred By: Confirmed By:HEIDI RYAN DO
--- NOTE | 2017-10-16 11:48 | OP ---
PROCEDURE: Incision and drainage of left lower extremity hematoma on 10/03/2017. PREOPERATIVE DIAGNOSIS: Infected hematoma of the left lower extremity. POSTOPERATIVE DIAGNOSIS: Infected hematoma of the left lower extremity. HISTORY: Ms. Buckley is a 47-year-old woman with a large amount of swelling and bruising after injuri ng her left leg. This then became very erythematous and tender and she was admitted for cellulitis a nd suspected abscess. She underwent drainage at the bedside and there was some cloudy old blood expr essed from the wound, but due to the size of the hematoma and the patient's pain, this could not be c ompletely drained. The recommendation was made to keep her n.p.o. and take her to the operating room the following day for I and D under anesthesia. PROCEDURE IN DETAIL: After informed consent was obtained and appropriate preoperative antibiotics co ntinued, the patient was taken to the operating room where she was placed in supine position and gene ral anesthesia was administered. She was prepped and draped in a standard sterile fashion and local anesthesia infused to the skin and subcutaneous tissues of her left leg. of the hematoma had b een identified by ultrasound and an incision was made at that location posteriorly, a large amount of old clot was encountered, but there was also copious bleeding from the skin and subcutaneous tissues requiring electrocautery and topical hemostatic to control. The previous incision along the anterio r aspect of the hematoma was enlarged and again significant bleeding encountered. It was felt that t he patient likely has an extensive complex of varicose veins, which may have contributed to her large hematoma to begin with. The entire hematoma cavity was able to be evacuated and packed and no signi ficant bleeding seen from within the chronic hematoma cavity, but hemostatic agents including Fibrill ar had to be placed to the skin and subcutaneous tissues at the I and D sites to control bleeding. O nce hemostasis had been obtained, the patient's leg was dressed with gauze and an Neymar wrap and she wa s taken to recovery in stable condition. Of note, the patient had a very difficult airway due to ext remely redundant soft tissue in the oropharynx, making visualization of the cords difficult and it wa s recommended that if she ever need surgery in the future, an awake fiberoptic intubation be performe d. The patient was informed of this postoperatively. Estimated blood loss was 25 mL. There were no complications. There were no specimens.
== END 2017-10-09 14:19 | disposition home health service (06) | DRG 872 ==
LOC: ERS 13:31 → ONC 18:33 → IMCU/EMU 09-30 13:37 → CCU 10-03 18:15 → IMCU/EMU 10-03 19:36 → T4-B 10-06 07:13
PROVIDERS: ADMIT Internal Medicine; ATTEND Internal Medicine
PROC: 0Y9B0ZZ Drainage of Left Lower Extremity, Open Approach (ICD-10-PCS; principal; 2017-10-03)
DX: A41.9 Sepsis, unspecified organism (principal); L03.116 Cellulitis of left lower limb; E66.2 Morbid (severe) obesity with alveolar hypoventilation; N17.9 Acute kidney failure, unspecified; N18.4 Chronic kidney disease, stage 4 (severe); E87.2 Acidosis; J96.10 Chronic respiratory failure, unspecified whether with hypoxia or hypercapnia; Z68.45 Body mass index [BMI] 70 or greater, adult; E87.1 Hypo-osmolality and hyponatremia; R65.20 Severe sepsis without septic shock; G47.33 Obstructive sleep apnea (adult) (pediatric); J44.9 Chronic obstructive pulmonary disease, unspecified; Z99.81 Dependence on supplemental oxygen; J45.909 Unspecified asthma, uncomplicated; E78.5 Hyperlipidemia, unspecified; E78.00 Pure hypercholesterolemia, unspecified; Z79.82 Long term (current) use of aspirin; Z79.84 Long term (current) use of oral hypoglycemic drugs; I12.9 Hypertensive chronic kidney disease with stage 1 through stage 4 chronic kidney disease, or unspecified chronic kidney disease; E11.22 Type 2 diabetes mellitus with diabetic chronic kidney disease; D64.9 Anemia, unspecified; E87.5 Hyperkalemia; B95.61 Methicillin susceptible Staphylococcus aureus infection as the cause of diseases classified elsewhere; I95.9 Hypotension, unspecified
CPT/HCPCS: 36415; 36416; 71045; 76770; 76999; 80048; 80053; 80202; 81001; 83605; 83880; 85025; 87040; 87070; 87077; 87186; 87205; 89190; 93005; 94640; 94660; 94760; 96365; 96366; A4216; G8978-GP-CM; G8979-GP-CK; J0692; J1644; J1650; J1956; J2001; J2270; J2405; J2704; J2765; J3010; J3370; J7050; J7620

== ENCOUNTER 2019-01-05 22:10 | Inpatient (IN) | payer MEDICARE, SELFPAY ==
[2019-01-05] MEDS ORDERED: Nitroglycerin 2% Ointment 1 INCH/1 GM Packet ONE (22:34)
[2019-01-05] MEDS ORDERED: Aspirin Chewable 81 MG TAB ONE (22:34)
[2019-01-05] MEDS ORDERED: Morphine 4 MG/ML VIAL ONE (22:34)
[2019-01-05 22:53] LABS: #Basophils 0.1 thou/uL (0.0-0.2); #Eosinphils 0.3 thou/uL (0.0-0.7); #Lymphocytes 4.8 thou/uL (1.20-3.40); #Monocytes 0.6 thou/uL (0.11-0.59); #Neutrophils 4.9 thou/uL (1.40-6.50); %Basophils 1.2 % (0.0-1.0); %Eosinophils 2.4 % (0.0-10.0); %Lymphocytes 45.2 % (21.0-51.0); %Monocytes 5.2 % (0.0-10.0); %Neutrophils 46.1 % (42.0-75.0); Hemoglobin 15.1 g/dL (12.0-16.0); Mean Corpuscular HGB CONC 33.1 g/dL (32.0-36.0); Mean Corpuscular Volume 90.9 fL (78.0-98.0); Platelet Count 214 thou/uL (130-400); RBC Distribution Width 13.1 % (11.5-14.5); Red Blood Cell (RBC) Count 5.04 mill/uL (4.20-5.40); White Blood Cell (WBC) Count 10.6 thou/uL (4.8-10.8)
--- NOTE | 2019-01-05 23:03 | RAD ---
PORTABLE CHEST ONE VIEW: 01/05/19 at 10:44 p.m. HISTORY: Right sided chest pain. FINDINGS: Comparison made with exam of 09/29/17. The heart size is normal. The lungs were expanded without focal areas of consolidation, pneumothorace s, or pleural effusions. IMPRESSION: No acute process. POS: [facility]
[2019-01-05 23:16] LABS: ALT (SGPT) 22 U/L (8-55); AST (SGOT) 34 U/L (5-34); Albumin 3.8 g/dL (3.5-5.0); Alkaline Phosphatase 96 U/L (40-110); Anion Gap 15 mmol/L (10-20); BUN (Urea Nitrogen) 17 mg/dL (7.0-18.7); Bilirubin, Total 0.4 mg/dL (0.2-1.2); Calc. Creatinine Clearance 0 mL/min (70-130); Calcium 9.1 mg/dL (7.8-10.44); Carbon Dioxide 26 mmol/L (22-29); Chloride 101 mmol/L (98-107); Estimated GFR-MDRD 61; Globulin 4.2 g/dL (2.4-3.5); Glucose 201 mg/dL (70-105); Lipase 22 U/L (8-78); Potassium 4.5 mmol/L (3.5-5.1); Sodium 137 mmol/L (136-145)
[2019-01-05 23:40] LABS: Bacteria/HPF 1+ HPF (None Seen); Bilirubin Negative (Negative); Blood, Urine 1+ (Negative); Clarity Turbid (Clear); Glucose, Urine (Dipstick) Normal (Negative); Leukocyte 75 Leu/uL (Negative); Nitrite Negative (Negative); Protein, Urine (Dipstick) 30 mg/dL (Neg-Trace); RBC/HPF 0-3 HPF (0-3); Urobilinogen Normal mg/dL (Less than 2)
[2019-01-06] MEDS ORDERED: Zolpidem Tartrate 5 MG TAB PO PRN (00:43)
[2019-01-06] MEDS ORDERED: Sodium Chloride 0.9% 1,000 ML IV SCH (00:45)
[2019-01-06] MEDS ORDERED: Dextrose 50% Abboject 50 ML SYRINGE SLOW IVP PRN (00:47)
[2019-01-06] MEDS ORDERED: Dextrose 5% in Water 1,000 ML IV PRN (00:47)
[2019-01-06] MEDS ORDERED: HumaLOG 300 UNITS/3 ML VIAL SC PRN (00:47)
[2019-01-06] MEDS ORDERED: Ketorolac Tromethamine 30 MG/ML VIAL ONE (01:09)
[2019-01-06 02:08] LABS: Hemoglobin A1c 6.2 % (4.0-6.0)
[2019-01-06] MEDS ORDERED: Ondansetron PF 4 MG/2 ML Vial IVP PRN (02:09)
[2019-01-06] MEDS ORDERED: Acetaminophen 325 MG TAB PO PRN (02:09)
[2019-01-06] MEDS ORDERED: Ondansetron ODT 4 MG TAB SL PRN (02:09)
[2019-01-06] MEDS ORDERED: Nitroglycerin 0.4 MG TAB (25 Tab Bottle) SL PRN (02:10)
[2019-01-06] MEDS ORDERED: Morphine 4 MG/ML VIAL SLOW IVP PRN (02:11)
[2019-01-06 02:24] LABS: Troponin I Less than 0.010 ng/mL (< 0.028)
--- NOTE | 2019-01-06 02:30 | HP ---
PRESENTING COMPLAINT: Right upper quadrant pain. HISTORY OF PRESENT ILLNESS: Ms. Yaneli Buckley is a 48-year-old morbidly obese female with past medical history of hypertension; diabetes mellitus, currently diet controlled, reportedly taken off metformin 2 weeks ago; history of diastolic CHF; anxiety disorder; and hyperlipidemia, developed sudden onset of right upper quadrant pain today after having lunch. She states she was initially in the emergency room accompanying a friend and after the friend was discharged, she has gone to eat and drinking some Sprite, after which she developed this aching stabbing pain in the right upper quadrant. The pain was not radiating. Intensity of pain was up to 10/10. She admits to some feeling of distress as well as panic symptoms. She presented to the ER 30 minutes with onset of pain. She was given morphine with some improvement in her pain to 3/10 to 4/10 now. She denies any cardiac history. There is no family history of coronary artery disease, except for her mother in her 60s, but she is still alive. She denies any tobacco use. EKG was unremarkable. Patient is unable to have CT of the chest due to her obesity as well as unable to have CT of the abdomen. PAST MEDICAL HISTORY: Significant for anxiety disorder, hypertension, hyperlipidemia, diastolic CHF, and diabetes mellitus. PAST MEDICAL HISTORY: Gallbladder resection. FAMILY HISTORY: Significant for mother with coronary artery disease in her 60s. Father with history of hypertension. SOCIAL HISTORY: Patient is residing in community with spouse who is accompanying her today. She denies any tobacco, alcohol, or illicit drug use. She is fully functional at baseline. ALLERGIES: CODEINE. HOME MEDICATIONS: Include; 1. Lasix 40 daily. 2. Lisinopril 10 daily. 3. Ranitidine 150 b.i.d. 4. Amitriptyline 25 daily. 5. Aspirin 81 daily. 6. Coreg 6.25 daily. 7. Imdur 30 mg once a day as well as Zocor 20 mg daily. REVIEW OF SYSTEMS: All systems review x14 were negative except as mentioned above. PHYSICAL EXAMINATION: VITAL SIGNS: Current vitals; blood pressure 138/81, pulse of 108, respiratory rate of 23, and O2 sat of 94% on room air. GENERAL: An obese female, calm, not in any distress, on room air. HEENT: Head is atraumatic and normocephalic. Pupils equal and reactive to light. Anicteric. NECK: No JVD. No carotid bruit. RESPIRATORY: Good air entry bilaterally. No crepitations. No chest wall tenderness. CARDIOVASCULAR: S1 and S2. Rate and rhythm regular. Mildly tachycardic. ABDOMEN: Morbidly obese. Tenderness over the right upper quadrant especially palpable liver margin with tenderness noted. No guarding. Bowel sounds positive in all 4 quadrants with suprapubic fullness. RECTAL: Deferred. MUSCULOSKELETAL: No pedal edema. No calf tenderness. NEUROLOGIC: Patient is alert and oriented. Conversant. LABORATORY DATA: EKG reviewed, showed normal sinus rhythm with tachycardia. No ST segment changes. Chest x-ray shows no acute pulmonary infiltrates. Abdominal ultrasound shows enlarged liver, with no gallstones or CBD obstruction. Images reviewed by me. Rest of lab; WBC 10.6, neutrophils 46%, hemoglobin 15, and platelets 214. D-dimer 1.08. Sodium 137, potassium 4.5, bicarb 26, anion gap of 15, creatinine 0.9, and glucose of 201. T bili of 0.4. AST, ALT, and alkaline phosphatase normal. Troponin less than 0.01. BNP less than 10. Urinalysis shows 11 to 20 wbc's with 0 to 3 rbc's and moderate leukocyte esterase. IMPRESSION: 1. Right upper quadrant pain, likely due to fatty liver. Unclear exact etiology of pain symptoms. We will admit her for observation. We will continue to monitor. We will repeat CMP in the a.m. We will also obtain hepatitis panel given mild hepatic tenderness. 2. Urinary tract infection. We will obtain urine culture. Start empirical antibiotics with Cipro. 3. Diabetes mellitus. We will obtain hemoglobin A1c. Insulin sliding scale for now. Unclear why patient was taken off metformin. 4. Hypertension. We will continue patient's home medications with Coreg, isosorbide, and lisinopril. 5. Deep venous thrombosis prophylaxis. Subcutaneous Lovenox. 6. Advanced directives. Patient is full code. 7. Disposition. We will admit her to observation, possible discharge in a.m. Total time spent on review of record, discussion with patient, and evaluation greater than 60 minutes. Job ID: [id number]
[2019-01-06 02:39] LABS: HBSAB Concentration 0.67 mIU/mL; HBSAg Index 0.19 S/CO (0-0.99); Hep A IgM AB Non-Reactive (NonReactive); Hep A IgM S/CO 0.12 S/CO (0-0.79); Hep B Surf AB Non-Reactive (NonReactive); Hep B Surf Ag Non-Reactive S/CO (NonReactive); Hep C IgG Ab Non-Reactive (NonReactive); Hep C Index 0.08 S/CO (0-0.79)
[2019-01-06 02:39] LABS: ALT (SGPT) 27 U/L (8-55); AST (SGOT) 55 U/L (5-34); Albumin 3.4 g/dL (3.5-5.0); Alkaline Phosphatase 94 U/L (40-110); Anion Gap 12 mmol/L (10-20); BUN (Urea Nitrogen) 18 mg/dL (7.0-18.7); Bilirubin, Total 0.5 mg/dL (0.2-1.2); Calc. Creatinine Clearance 0 mL/min (70-130); Calcium 8.8 mg/dL (7.8-10.44); Carbon Dioxide 27 mmol/L (22-29); Chloride 104 mmol/L (98-107); Estimated GFR-MDRD 72; Globulin 3.8 g/dL (2.4-3.5); Glucose 141 mg/dL (70-105); Potassium 3.8 mmol/L (3.5-5.1); Protein, Total 7.2 g/dL (6.0-8.3); Sodium 139 mmol/L (136-145)
[2019-01-06] MEDS: Ciprofloxacin 500 MG TAB PO SCH ×2 (05:08→20:49)
[2019-01-06] MEDS: HYDROcodone/Acetaminophen 5/325 mg Tablet PO PRN ×2 (05:08→17:49)
[2019-01-06 05:35] LABS: Troponin I Less than 0.010 ng/mL (< 0.028)
[2019-01-06 07:24] VITALS: BMI 92.5
[2019-01-06] MEDS ORDERED: FLU VACC QS2019-20(6MOS UP)/PF 60 MCG/0.5 ML SYRINGE IM ONE (09:00)
[2019-01-06] MEDS: Isosorbide Mononitrate (ER) 30 MG TAB PO SCH (09:10)
[2019-01-06] MEDS: Famotidine 20 MG TAB PO SCH ×2 (09:10→20:49)
[2019-01-06] MEDS: Lisinopril 10 MG TAB PO SCH (09:10)
[2019-01-06] MEDS: Aspirin 81 mg Enteric Coated Tablet PO SCH (09:12)
[2019-01-06] MEDS: Enoxaparin Sodium 40 MG/0.4 ML SYRINGE SC SCH (09:12)
[2019-01-06] MEDS: Carvedilol 6.25 MG TAB PO SCH ×2 (09:12→20:49)
[2019-01-06] MEDS: Amitriptyline HCl 25 MG TAB PO SCH ×2 (09:12→20:49)
--- NOTE | 2019-01-06 09:40 | ULT ---
PRELIMINARY REPORT/[facility]/EMERGENCY AFTER HOURS PROCEDURE: PROCEDURE INFORMATION: Exam: US Abdomen Limited, Right Upper Quadrant Exam date and time: 01/05/2019 11:58 PM Clinical history: 48 years old, female; Other: Upper abd pain; Prior surgery; Surgery date: 6+ months ; Surgery type: Gb removed TECHNIQUE: Imaging protocol: Real-time ultrasound of the abdomen with image documentation. Examination was focus ed on the right upper quadrant. COMPARISON: No relevant prior studies available. FINDINGS: Liver: Normal. No masses. Gallbladder: Prior cholecystectomy. Common bile duct: Normal. No stones. No dilation. Pancreas: Visualized pancreas is unremarkable. Right kidney: Normal. No mass. No hydronephrosis. IMPRESSION: No acute findings. Thank you for allowing us to participate in the care of your patient. Dictated and Authenticated by: Manolo Pimentel MD 01/06/2019 12:57 AM Central Time ([place] & [place]) FINAL REPORT RIGHT UPPER QUADRANT ULTRASOUND: COMPARISON: None. HISTORY: Right upper quadrant pain. FINDINGS: Examination is limited due to body habitus. This report is in agreement with the preliminary report by [facility]. No acute abnormality. Limited and s uboptimal evaluation of the common bile duct. Gallbladder is reported to be surgically absent. POS: [facility]
--- NOTE | 2019-01-06 11:31 | PDOC.HOSPP ---
- Subjective Encounter Date: 01/06/19 Encounter Time: 11:29 Subjective: Patient seen and examined. No new complaints. No overnight events. RUQ pain is better. No N/V. No leg pain or swelling reported. No cp or sob. - Objective Vital Signs & Weight: Vital Signs (12 hours) Temp Pulse Resp BP BP Pulse Ox 01/06/19 09:12 130/69 01/06/19 09:10 130/69 01/06/19 07:57 97.5 F L 77 20 130/69 91 L 01/06/19 02:02 98.4 F 108 H 20 162/81 H 95 Weight Weight 473 lb 12.374 oz I&O: 01/05/19 01/06/19 01/07/19 06:59 06:59 06:59 Intake Total 520 240 Output Total 0 Balance 520 240 Result Diagrams: 01/05/19 22:47 01/06/19 01:44 Additional Labs: Accuchecks 01/06/19 01/06/19 01/05/19 10:36 05:16 22:46 POC Glucose 111 H 102 183 H Hospitalist ROS - Medication Medications: Active Medications Generic Name Dose Route Start Last Admin Trade Name Freq PRN Reason Stop Dose Admin Hydrocodone Bitart/Acetaminophen 1 tab 01/06/19 00:43 01/06/19 05:08 Olga 5/325 PO 1 tab Q4H PRN Administration Moderate Pain (4-6) Amitriptyline HCl 25 mg 01/06/19 09:00 01/06/19 09:12 Elavil PO 25 mg BID FERNANDO Administration Aspirin 81 mg 01/06/19 09:00 01/06/19 09:12 Ecotrin PO 81 mg DAILY FERNANDO Administration Carvedilol 6.25 mg 01/06/19 09:00 01/06/19 09:12 Coreg PO 6.25 mg BID FERNANDO Administration Ciprofloxacin 500 mg 01/06/19 06:00 01/06/19 05:08 Cipro PO 500 mg BID@0600,2000 FERNANDO Administration Enoxaparin Sodium 40 mg 01/06/19 09:00 01/06/19 09:12 Lovenox SC 40 mg 0900 FERNANDO Administration Famotidine 20 mg 01/06/19 09:00 01/06/19 09:10 Pepcid PO 20 mg BID FERNANDO Administration Sodium Chloride 1,000 mls @ 75 mls/hr 01/06/19 00:45 01/06/19 02:39 Normal Saline 0.9% IV 1,000 mls .[id number] FERNANDO Administration Isosorbide Mononitrate 30 mg 01/06/19 09:00 01/06/19 09:10 Imdur Er PO 30 mg DAILY FERNANDO Administration Lisinopril 10 mg 01/06/19 09:00 01/06/19 09:10 Zestril PO 10 mg DAILY FERNANDO Administration Sodium Chloride 10 ml 01/06/19 09:00 01/06/19 09:13 Flush - Normal Saline IVF Not Given Q12HR FERNANDO - Exam General Appearance: NAD General - other findings: Morbidly obese Eye: anicteric sclera ENT: normocephalic atraumatic Neck: supple Heart: RRR Respiratory: CTAB Gastrointestinal: soft Extremities: no edema Skin: normal turgor Neurological: no weakness Psychiatric: normal affect Hosp A/P (1) UTI (urinary tract infection) Status: Acute (2) RUQ abdominal pain Code(s): R10.11 - RIGHT UPPER QUADRANT PAIN Status: Acute (3) Diabetes type 2, controlled Code(s): E11.9 - TYPE 2 DIABETES MELLITUS WITHOUT COMPLICATIONS Status: Chronic (4) Morbid obesity Code(s): E66.01 - MORBID (SEVERE) OBESITY DUE TO EXCESS CALORIES Status: Chronic (5) Dyslipidemia Code(s): E78.5 - HYPERLIPIDEMIA, UNSPECIFIED Status: Chronic (6) Hypertension Code(s): I10 - ESSENTIAL (PRIMARY) HYPERTENSION Status: Chronic Qualifiers: (7) Obesity hypoventilation syndrome Code(s): E66.2 - MORBID (SEVERE) OBESITY WITH ALVEOLAR HYPOVENTILATION Status : Chronic (8) Sleep apnea Code(s): G47.30 - SLEEP APNEA, UNSPECIFIED Status: Chronic - Plan plan discussed w/ family, continue antibiotics, PT/OT, social sciences chair, DVT proph w/lovenox Abd US unremarkable. CT cant be done due to Morbid Obesity. pain is better continue cipro f/u culture report. Hep panel neg Ddimer elevated but asymptomatic, CTA cant be done. Monitor LFTs. Monitor BS, on SSI. BP stable. AM labs.
[2019-01-06] MEDS: Sodium Chloride 0.9% 1,000 ML IV SCH ×2 (11:53→17:52)
[2019-01-07] MEDS: Ciprofloxacin 500 MG TAB PO SCH (05:46)
[2019-01-07 06:54] LABS: Troponin I 0.011 ng/mL (< 0.028)
[2019-01-07 06:58] LABS: ALT (SGPT) 26 U/L (8-55); AST (SGOT) 45 U/L (5-34); Albumin 3.1 g/dL (3.5-5.0); Alkaline Phosphatase 87 U/L (40-110); Anion Gap 11 mmol/L (10-20); BUN (Urea Nitrogen) 14 mg/dL (7.0-18.7); Bilirubin, Total 0.5 mg/dL (0.2-1.2); Calc. Creatinine Clearance 298 mL/min (70-130); Calcium 8.6 mg/dL (7.8-10.44); Carbon Dioxide 29 mmol/L (22-29); Chloride 104 mmol/L (98-107); Estimated GFR-MDRD 83; Glucose 104 mg/dL (70-105); Potassium 4.5 mmol/L (3.5-5.1); Protein, Total 7.1 g/dL (6.0-8.3); Sodium 139 mmol/L (136-145)
[2019-01-07] MEDS: Amitriptyline HCl 25 MG TAB PO SCH (09:22)
[2019-01-07] MEDS: Famotidine 20 MG TAB PO SCH (09:23)
[2019-01-07] MEDS: Enoxaparin Sodium 40 MG/0.4 ML SYRINGE SC SCH (09:23)
[2019-01-07] MEDS: Aspirin 81 mg Enteric Coated Tablet PO SCH (09:23)
[2019-01-07] MEDS: Carvedilol 6.25 MG TAB PO SCH (09:23)
[2019-01-07] MEDS: Lisinopril 10 MG TAB PO SCH (09:24)
[2019-01-07] MEDS: Isosorbide Mononitrate (ER) 30 MG TAB PO SCH (09:24)
[2019-01-07 11:54] VITALS: BP 110/56; TEMP 97.9
--- NOTE | 2019-01-08 07:56 | DIS ---
DATE OF ADMISSION: 01/06/2019 DATE OF DISCHARGE: 01/07/2019 DISCHARGE DISPOSITION: Home. PRIMARY DISCHARGE DIAGNOSES: Urinary tract infection, right upper quadrant abdominal pain resolved, diabetes mellitus type 2, obstructive sleep apnea, obesity hypoventilation, morbid obesity with BMI of 88, hypertension, dyslipidemia. PROCEDURES DONE DURING HOSPITALIZATION: Chest x-ray done showed no acute process. Right upper quadrant ultrasound done showed normal liver with no masses. Prior cholecystectomy. Normal common bile duct. No stones or dilatation in the common bile duct. Right kidney showed no mass or hydronephrosis. No acute findings were seen overall. Urine culture showed mixed freeman less than 25,000. White count of 10, H and H of 15 and 45, platelet count 214 with 46% neutrophils. D-dimer 1.08. BUN 14, creatinine 0.7. Troponin x3 negative. Albumin 3.4. BNP less than 10. HbA1c 6.2. Acute hepatitis panel was nonreactive. UA showed positive leukocyte esterase, 11 to 20 wbc's, and 1+ bacteria. DISCHARGE MEDICATIONS: 1. Ciprofloxacin 500 mg p.o. twice daily for another 4 days. 2. Lasix 40 mg p.o. daily. 3. K-Dur 20 mEq p.o. on alternate days. 4. Coreg 6.25 mg twice daily. 5. Simvastatin 20 mg p.o. at bedtime. 6. Ranitidine 150 mg twice daily. 7. Lisinopril 10 mg p.o. daily. 8. Aspirin 81 mg p.o. daily. 9. Amitriptyline 25 mg p.o. twice daily. ALLERGIES: ALLERGIC TO CODEINE. DISCHARGE PLAN: The patient to follow up with her primary care physician at [facility]. BRIEF COURSE DURING HOSPITALIZATION: The patient initially got admitted on the with complaints of right upper quadrant abdominal pain. She has had a complete workup including right upper quadrant ultrasound done which showed prior history of cholecystectomy with no acute findings. Her initial workup revealed urinary tract infection. She was placed on ciprofloxacin. The patient has had four sets of troponin done which were negative. Rest of her labs were within normal limits. She has had a hepatitis panel which was negative as well. The patient remained hemodynamically stable. She had elevated D-dimer, but the patient's BMI was 88 with her weighing nearly 452 pounds was not fitting into the CT scanner for a CT angio. She has otherwise remained hemodynamically stable, ambulating and eating well prior to discharge. Please note, I have seen and examined the patient on the day of discharge. She needs to see a primary care physician in 1 week. Job ID: [id number] MTDD
== END 2019-01-07 12:57 | disposition home or self-care (01) | DRG 690 ==
LOC: ERS 22:10 → 2SW 22:11 → UNDOADMOB 01-06 00:20 → UNDODISOB 01-07 12:57
PROVIDERS: ADMIT Internal Medicine; ATTEND Internal Medicine
DX: N39.0 Urinary tract infection, site not specified (principal); E66.2 Morbid (severe) obesity with alveolar hypoventilation; Z68.45 Body mass index [BMI] 70 or greater, adult; I50.32 Chronic diastolic (congestive) heart failure; E78.5 Hyperlipidemia, unspecified; E11.9 Type 2 diabetes mellitus without complications; J44.9 Chronic obstructive pulmonary disease, unspecified; G40.909 Epilepsy, unspecified, not intractable, without status epilepticus; F32.9 Major depressive disorder, single episode, unspecified; I11.0 Hypertensive heart disease with heart failure; R10.11 Right upper quadrant pain; F41.9 Anxiety disorder, unspecified; Z79.899 Other long term (current) drug therapy; Z79.82 Long term (current) use of aspirin; Z88.5 Allergy status to narcotic agent; Z90.49 Acquired absence of other specified parts of digestive tract; Z79.84 Long term (current) use of oral hypoglycemic drugs; Z23 Encounter for immunization
CPT/HCPCS: 36415; 36416; 71045; 76705; 80053; 81003; 81015; 83036; 83690; 83880; 84484; 85025; 85379; 86706; 86709; 86803; 87086; 87340; 90471; 90686; 93005; 96360; 96361; 96372; G0008; G0378; J1650; J1885; J2270

== ENCOUNTER 2019-01-10 16:22 | Emergency (ER) | payer SELFPAY ==
--- NOTE | 2019-01-10 18:30 | RAD ---
Radiograph right foot 3 views: DATE: 01/10/2019 HISTORY: 48-year-old female with right foot pain FINDINGS: Diffuse soft tissue edema. No periostitis or permeative lesion. No fracture or dislocation. Mild to m oderate DJD at first, second, and third TMT's. No severe DJD identified. Flatfoot. IMPRESSION: 1. Pes planus. 2. 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 3. Soft tissue edema.
== END 2019-01-10 19:37 | disposition home or self-care (01) ==
LOC: ERS 16:22
DX: M79.671 Pain in right foot (principal); E11.9 Type 2 diabetes mellitus without complications; I11.0 Hypertensive heart disease with heart failure; I50.9 Heart failure, unspecified; J44.9 Chronic obstructive pulmonary disease, unspecified; F32.9 Major depressive disorder, single episode, unspecified; Z79.899 Other long term (current) drug therapy; Z79.82 Long term (current) use of aspirin; Z79.891 Long term (current) use of opiate analgesic

== ENCOUNTER 2021-02-06 23:25 | Emergency (ER) | payer MEDICARE ==
[2021-02-07] MEDS ORDERED: Lisinopril 10 MG TAB ONE ×2 (01:17→01:49)
[2021-02-07] MEDS ORDERED: diphenhydrAMINE 25 MG CAP ONE (01:49)
== END 2021-02-07 02:22 | disposition home or self-care (01) ==
LOC: ERS 23:25
DX: Z77.098 Contact with and (suspected) exposure to other hazardous, chiefly nonmedicinal, chemicals (principal); I11.0 Hypertensive heart disease with heart failure; I50.9 Heart failure, unspecified; E11.9 Type 2 diabetes mellitus without complications; J44.9 Chronic obstructive pulmonary disease, unspecified; Z79.82 Long term (current) use of aspirin; Z79.899 Other long term (current) drug therapy
CPT/HCPCS: 99283

== ENCOUNTER 2023-01-25 17:12 | Inpatient (IN) | payer BC, SELFPAY ==
[2023-01-25 17:43] LABS: #Eosinphils 0.2 thou/uL (0.0-0.7); #Monocytes 0.5 thou/uL (0.11-0.59); #Neutrophils 4.5 thou/uL (1.40-6.50); %Basophils 0.3 % (0.0-1.0); %Eosinophils 2.2 % (0.0-10.0); %Lymphocytes 41.1 % (21.0-51.0); %Monocytes 5.8 % (0.0-10.0); %Neutrophils 50.2 % (42.0-75.0); Hematocrit 44.4 % (36.0-47.0); Hemoglobin 14.4 g/dL (12.0-16.0); Mean Corpuscular HGB CONC 32.4 g/dL (32.0-36.0); Mean Corpuscular Hemoglobin 30.6 pg (27.0-31.0); Mean Corpuscular Volume 94.5 fl (78.0-98.0); Mean Platelet Volume 9.8 fL (7.4-10.4); Platelet Count 179 10x3/uL (130-400); RBC Distribution Width 13.9 % (11.5-14.5)
[2023-01-25 18:16] LABS: ALT (SGPT) 11 U/L (8-55); AST (SGOT) 25 U/L (5-34); Albumin 3.8 g/dL (3.5-5.0); Alkaline Phosphatase 105 U/L (40-110); Anion Gap 16 mmol/L (10-20); BUN (Urea Nitrogen) 13 mg/dL (9.8-20.1); Bilirubin, Total 0.8 mg/dL (0.2-1.2); Calc. Creatinine Clearance 0 mL/min (70-130); Carbon Dioxide 27 mmol/L (22-29); Chloride 101 mmol/L (98-107); Estimated GFR 85; Globulin 4.3 g/dL (2.4-3.5); Glucose 123 mg/dL (70-105); Potassium 3.8 mmol/L (3.5-5.1); Protein, Total 8.1 g/dL (6.0-8.3); Sodium 140 mmol/L (136-145)
[2023-01-25 18:17] LABS: Troponin I Less than 0.010 ng/mL (< 0.028)
[2023-01-25] MEDS ORDERED: Furosemide 40 MG/4 ML VIAL ONE (18:40)
[2023-01-25] MEDS ORDERED: Ondansetron PF 4 MG/2 ML Vial IVP PRN (19:38)
[2023-01-25] MEDS ORDERED: Acetaminophen 325 MG TAB PO PRN (19:38)
[2023-01-25] MEDS ORDERED: Ipratropium/Albuterol 3 ML NEB EZPAP PRN (19:39)
[2023-01-25] MEDS ORDERED: methylPREDNISolone Sod Succ/PF 125 MG/2 ML VIAL ONE (19:42)
[2023-01-25] MEDS ORDERED: Ipratropium/Albuterol 3 ML NEB ONE (19:57)
[2023-01-25] MEDS: Ipratropium/Albuterol 3 ML NEB NEB SCH (23:10)
[2023-01-26] MEDS ORDERED: Ipratropium/Albuterol 3 ML NEB EZPAP SCH (01:00)
[2023-01-26] MEDS: Ipratropium/Albuterol 3 ML NEB NEB SCH ×6 (02:28→23:26)
[2023-01-26 04:20] VITALS: BMI 89.2
[2023-01-26 05:07] LABS: #Monocytes 0.1 thou/uL (0.11-0.59); #Neutrophils 5.2 thou/uL (1.40-6.50); %Basophils 0.3 % (0.0-1.0); %Eosinophils 0.1 % (0.0-10.0); %Lymphocytes 28.4 % (21.0-51.0); %Monocytes 0.8 % (0.0-10.0); %Neutrophils 69.2 % (42.0-75.0); Hematocrit 43.5 % (36.0-47.0); Hemoglobin 13.9 g/dL (12.0-16.0); Mean Corpuscular Hemoglobin 30.5 pg (27.0-31.0); Mean Corpuscular Volume 95.6 fl (78.0-98.0); Mean Platelet Volume 10.4 fL (7.4-10.4); Platelet Count 181 10x3/uL (130-400); RBC Distribution Width 13.7 % (11.5-14.5); Red Blood Cell (RBC) Count 4.55 mill/uL (4.20-5.40); White Blood Cell (WBC) Count 7.6 10x3/uL (4.8-10.8)
[2023-01-26 06:50] LABS: Anion Gap 17 mmol/L (10-20); BUN (Urea Nitrogen) 13 mg/dL (9.8-20.1); Calc. Creatinine Clearance 279 mL/min (70-130); Calcium 8.9 mg/dL (7.8-10.44); Carbon Dioxide 27 mmol/L (22-29); Chloride 99 mmol/L (98-107); Estimated GFR 89; Glucose 162 mg/dL (70-105); Magnesium 1.7 mg/dL (1.6-2.6); Potassium 3.4 mmol/L (3.5-5.1); Sodium 140 mmol/L (136-145)
[2023-01-26] MEDS ORDERED: Furosemide 20 MG/2 ML VIAL SLOW IVP SCH (07:15)
[2023-01-26] MEDS ORDERED: predniSONE 20 MG TAB PO SCH (08:00)
[2023-01-26] MEDS ORDERED: Potassium Chloride 20 MEQ TAB PO SCH (08:00)
[2023-01-26] MEDS: methylPREDNISolone Sod Succ 40 MG VIAL IVP SCH ×2 (08:14→21:25)
[2023-01-26] MEDS: Sertraline 100 MG TAB PO SCH (08:15)
[2023-01-26] MEDS: Carvedilol 6.25 MG TAB PO SCH ×2 (08:15→21:24)
[2023-01-26] MEDS: Aspirin 81 mg Enteric Coated Tablet PO SCH (08:15)
[2023-01-26] MEDS: Lisinopril 20 MG TAB PO SCH ×2 (08:15→21:25)
[2023-01-26] MEDS: Furosemide 40 MG/4 ML VIAL SLOW IVP SCH (14:04)
[2023-01-26] MEDS ORDERED: Atorvastatin Calcium 10 MG TAB PO SCH (21:00)
[2023-01-26] MEDS ORDERED: Amitriptyline HCl 25 MG TAB PO SCH (21:00)
[2023-01-26] MEDS ORDERED: Simvastatin 20 MG TAB PO SCH (21:00)
[2023-01-26] MEDS ORDERED: Non-Formulary Item 1 EACH (Amitriptyline Hcl [Amitriptyline Hcl] 50 MG Tablet) PO SCH (21:00)
[2023-01-27] MEDS: Furosemide 40 MG/4 ML VIAL SLOW IVP SCH (05:33)
[2023-01-27 05:43] LABS: Anion Gap 13 mmol/L (10-20); BUN (Urea Nitrogen) 19 mg/dL (9.8-20.1); Calc. Creatinine Clearance 279 mL/min (70-130); Calcium 8.9 mg/dL (7.8-10.44); Carbon Dioxide 32 mmol/L (22-29); Chloride 97 mmol/L (98-107); Estimated GFR 91; Glucose 177 mg/dL (70-105); Magnesium 1.9 mg/dL (1.6-2.6); Potassium 3.6 mmol/L (3.5-5.1); Sodium 138 mmol/L (136-145)
[2023-01-27] MEDS: Ipratropium/Albuterol 3 ML NEB NEB SCH ×2 (07:05→13:11)
[2023-01-27] MEDS: methylPREDNISolone Sod Succ 40 MG VIAL IVP SCH (08:57)
[2023-01-27] MEDS: Aspirin 81 mg Enteric Coated Tablet PO SCH (09:02)
[2023-01-27] MEDS: Lisinopril 20 MG TAB PO SCH (09:02)
[2023-01-27] MEDS: Sertraline 100 MG TAB PO SCH (09:02)
[2023-01-27] MEDS: Carvedilol 6.25 MG TAB PO SCH (09:02)
[2023-01-27 09:04] VITALS: BP 145/71; TEMP 97.5
== END 2023-01-27 11:13 | disposition home or self-care (01) | DRG 291 ==
LOC: ERS 17:12 → 2SW 19:30
PROVIDERS: ADMIT Internal Medicine; ATTEND Family Medicine
DX: I11.0 Hypertensive heart disease with heart failure (principal); I50.33 Acute on chronic diastolic (congestive) heart failure; J96.01 Acute respiratory failure with hypoxia; J44.1 Chronic obstructive pulmonary disease with (acute) exacerbation; Z68.45 Body mass index [BMI] 70 or greater, adult; J44.9 Chronic obstructive pulmonary disease, unspecified; F32.A Depression, unspecified; E78.5 Hyperlipidemia, unspecified; E11.9 Type 2 diabetes mellitus without complications; G47.33 Obstructive sleep apnea (adult) (pediatric); E66.01 Morbid (severe) obesity due to excess calories; Z79.82 Long term (current) use of aspirin; Z90.49 Acquired absence of other specified parts of digestive tract; Z98.51 Tubal ligation status; Z88.5 Allergy status to narcotic agent; Z79.899 Other long term (current) drug therapy; Z87.891 Personal history of nicotine dependence
CPT/HCPCS: 36415; 36416; 71045; 80048; 80053; 83735; 83880; 84484; 85025; 93005; 93306; 94640; 96374; 96375; J1650; J1940; J2920; J2930; J7620

== ENCOUNTER 2023-03-21 14:56 | Emergency (ER) | payer SELFPAY ==
[2023-03-21] MEDS ORDERED: Morphine 4 MG/ML VIAL ONE (15:18)
[2023-03-21] MEDS ORDERED: fentaNYL 50 mcg/mL 1 mL Vial ONE (16:09)
[2023-03-21 18:31] LABS: #Basophils 0.1 thou/uL (0.0-0.2); #Eosinphils 0.1 thou/uL (0.0-0.7); #Monocytes 0.9 thou/uL (0.11-0.59); #Neutrophils 8.1 thou/uL (1.40-6.50); %Basophils 0.4 % (0.0-1.0); %Eosinophils 0.4 % (0.0-10.0); %Lymphocytes 34.9 % (21.0-51.0); %Monocytes 6.1 % (0.0-10.0); %Neutrophils 57.9 % (42.0-75.0); Hematocrit 45.6 % (36.0-47.0); Hemoglobin 15.2 g/dL (12.0-16.0); Mean Corpuscular HGB CONC 33.3 g/dL (32.0-36.0); Mean Corpuscular Hemoglobin 30.3 pg (27.0-31.0); Mean Platelet Volume 10.3 fL (7.4-10.4); Platelet Count 176 10x3/uL (130-400); RBC Distribution Width 13.8 % (11.5-14.5); Red Blood Cell (RBC) Count 5.01 mill/uL (4.20-5.40); White Blood Cell (WBC) Count 13.9 10x3/uL (4.8-10.8)
[2023-03-21 18:53] LABS: ALT (SGPT) 20 U/L (8-55); AST (SGOT) 55 U/L (5-34); Albumin 3.4 g/dL (3.5-5.0); Alkaline Phosphatase 115 U/L (40-110); Anion Gap 13 mmol/L (10-20); BUN (Urea Nitrogen) 14 mg/dL (9.8-20.1); Bilirubin, Total 1.7 mg/dL (0.2-1.2); Calc. Creatinine Clearance 0 mL/min (70-130); Calcium 8.8 mg/dL (7.8-10.44); Carbon Dioxide 25 mmol/L (22-29); Chloride 101 mmol/L (98-107); Estimated GFR 85; Globulin 3.8 g/dL (2.4-3.5); Glucose 157 mg/dL (70-105); Potassium 5.3 mmol/L (3.5-5.1); Protein, Total 7.2 g/dL (6.0-8.3); Sodium 134 mmol/L (136-145)
[2023-03-21] MEDS ORDERED: Ketorolac Tromethamine 30 MG (1 mL) VIAL ONE (19:01)
[2023-03-21] MEDS ORDERED: Dexamethasone 10 MG/ML VIAL ONE (19:51)
[2023-03-21 20:02] LABS: Acetaminophen Less than 10 mcg/mL (10.0-30.0); Alcohol Less than 10.0 mg/dL (Less than 10); Salicylate Less than 8.0 mg/dL (15.0-30.0)
[2023-03-21 20:20] LABS: Bacteria/HPF None Seen HPF (None Seen); Bilirubin 1+ (Negative); Blood, Urine Negative (Negative); CAUTI Indications for Culture Dysuria,urgency,freq; Clarity Clear (Clear); Glucose, Urine (Dipstick) Normal (Negative); Ketone, Urine Negative (Negative); Leukocyte Negative Leu/uL (Negative); Nitrite Negative (Negative); Protein, Urine (Dipstick) 20 mg/dL (Neg-Trace); RBC/HPF 0-3 HPF (0-3); Specific Gravity, Urine 1.027 (1.002-1.036); WBC/HPF 0-3 HPF (0-3)
[2023-03-21 20:23] LABS: Urine Culture Reflex No No
[2023-03-21 20:25] LABS: Amphetamine Not Detected (NotDetected); Barbiturates Screen Not Detected (NotDetected); Benzodiazepine Screen Not Detected (NotDetected); Cocaine Metabolite Screen Not Detected (NotDetected); Methadone Not Detected (NotDetected); Methamphetamine Not Detected (NotDetected); Opiate Screen Detected (NotDetected); Oxycodone Screen Not Detected (NotDetected); Phencyclidine (PCP) Not Detected (NotDetected); THC/Cannabinoid Screen Not Detected (NotDetected); Tricyclic Screen Detected (NotDetected)
== END 2023-03-22 00:36 | disposition home or self-care (01) ==
LOC: ERS 14:56
DX: M54.50 Low back pain, unspecified (principal); E11.9 Type 2 diabetes mellitus without complications; I11.0 Hypertensive heart disease with heart failure; I50.9 Heart failure, unspecified; J44.9 Chronic obstructive pulmonary disease, unspecified; Z79.82 Long term (current) use of aspirin; Z79.899 Other long term (current) drug therapy
CPT/HCPCS: 71045; 72100; 80053; 80306; 80307; 81001; 85025; 86140; 87086; 96372; 96374; 96375; J1100; J1885; J2270; J3010